=== PATIENT | female | born 1975 | race Caucasian/White ===

== ENCOUNTER 2018-08-24 16:48 | Inpatient (IN) ==
[~2018-08-24 16:48] MED LIST: Cholecalciferol (D-3) 1,000 UNIT (25MCG) TABLET PO SCH
--- NOTE | 2018-08-24 17:12 | Internal Med History&Physical ---
Date of Encounter: 08/24/18 Time of Encounter: 17:06 Internal Medicine - H&P: HPI Chief complaint: Cellulitis Admitted From: Direct Admit Plans for Post Hospital Care: Home History of present illness: Ms. Mcdowell is a 43 year old female with history of GERD, DM, HLD, asthma, anxiety, tobacco abuse, who is transferred to us due to right lower ext cellulitis that has not improved despite vancomycin. She had presented there on 08/22 with right lower ext redness/pain/swelling. Has had celulitis in same leg before. Initiall temp was 102. BP was 97/68. Patient had a temp today up to 101.1 and BP 92/50. Initial WBC count of 13.8. Was down to 8.5 today. Had elevated D-dimers and CTA ruled out PE. Was put on Vancomycin and clindamycin from day 1. Blood cultures remained negative. Patient is complaining of loose stools that started today. Had 4 of them. She denies any dizziness, headache, nausea, vomiting, chest pain, shortness of breath, cough, abdominal pain, constipation, urinary symptoms, or neurological symptoms. Other labs at [place]: BUN 9, Cr .7, Na 137, K 3.8, CL 100, CO2 26, Procalcitonin elevated at .17. UA negative Right lower ext venous doppler negative for DVT Past Med Surg Social Fam HX - Past Medical History Medical history: asthma, diabetes Psychiatric history: anxiety - Past Surgical History Surgical History: cholecystectomy, hysterectomy Additional surgical history: thiroid nodule - Social History Smoking Status: Current every day smoker Internal Medicine - H&P: Meds Allergy/AdvReac Type Severity Reaction Status Date / Time naproxen AdvReac Agitated Verified 02/16/18 07:31 All Systems PM: A 10-system review of systems was performed and is negative for pertinent findings except as documented above in the HPI. Review of systems: All systems reviewed are negative except for as mentioned above - Constitutional Exam: GEN: NAD HEENT: AT, NC, No cyanosis, oral mucosa is moist, No JVD Lymphatics: No lymphadenoapthy Eyes: Extrocular muscles intact, anicteric CVS:RRR. S1, S2, No m/r/g RESP: CTAB ABD: Soft, NT, ND, +BS EXT: right lower extremity erythema and warmth felt from the leg distally up to the midial thigh. There is a blister on the medial leg and another one next to it that is open, 2+ DP NEURO: Nonfocal, CN II-XII intact, No focal motor or sensory deficits Psych: Cooperative, Not anxious or depressed - Assessment and Plan (1) Sepsis Current Visit: Yes Status: Acute Assessment and plan: Treat underlyng as below. Will send blood cultures. Check lactic acid. Check procalcitonin. Repeat basic labs Qualifiers: Sepsis type: sepsis due to unspecified organism Qualified Code(s): A41.9 - Sepsis, unspecified organism (2) Cellulitis Current Visit: Yes Status: Acute Assessment and plan: Will f/u on labs as above. Start vancomycin/zosyn. Will get a CT of right lower extremity and proceed from there. May need ID consult and possibly surgery consult. Will try to get cultures from the leg open wounds if there is any drainage. Qualifiers: Site of cellulitis: extremity Site of cellulitis of extremity: lower extremity Laterality: right Qualified Code(s): L03.115 - Cellulitis of right lower limb (3) Diarrhea Current Visit: Yes Status: Acute Assessment and plan: Need to rule out C. Diff Qualifiers: Diarrhea type: unspecified type Qualified Code(s): R19.7 - Diarrhea, unspecified (4) Diabetes Current Visit: Yes Status: Acute Assessment and plan: SSI. Accucheks Qualifiers: Diabetes mellitus type: type 2 Diabetes mellitus continuous churn buttermaker insulin use: without continuous churn buttermaker use Diabetes mellitus complication status: without complication Qualified Code(s): E11.9 - Type 2 diabetes mellitus without complications (5) GERD (gastroesophageal reflux disease) Current Visit: Yes Status: Acute Assessment and plan: c/w home PPI Qualifiers: Esophagitis presence: without esophagitis Qualified Code(s): K21.9 - Gastro-esophageal reflux disease without esophagitis (6) Tobacco abuse Current Visit: Yes Status: Acute Assessment and plan: Nicotine patch (7) Morbid obesity Current Visit: Yes Status: Acute Assessment and plan: counseled (8) DVT prophylaxis Current Visit: Yes Status: Acute Assessment and plan: Heparin SQ - Time Spent With Patient Total time spent is greater than 50% in coordination of care (as documented) at patient's floor/unit and/or counseling patient:
[2018-08-24] MEDS ORDERED: Naloxone 0.4 MG/ML INJ IVP PRN (17:17)
[2018-08-24] MEDS ORDERED: Dextrose Gel 15 GM/37.5 ML TUBE PO PRN ×2 (17:18)
[2018-08-24] MEDS ORDERED: *HR* Dextrose 50 % in Water (Syg) 50 ML SYRINGE IVP PRN (17:18)
[2018-08-24] MEDS ORDERED: Morphine Sulfate 2 MG/ML SYRINGE IVP PRN (17:18)
[2018-08-24] MEDS ORDERED: D5% in Water 1,000 ML IVC PRN (17:18)
[2018-08-24] MEDS ORDERED: Ondansetron 4 MG/2 ML VIAL IVP PRN (17:19)
[2018-08-24] MEDS ORDERED: Isovue-370 500 ML BOTTLE IVP ONE (17:24)
[2018-08-24] MEDS ORDERED: 0.9 % Sodium Chloride 1,000 ML IVC SCH (17:30)
[2018-08-24 18:10] LABS: Basophils % 0.5 %; Eosinophils # 0.1 K/mcL (0.0-0.6); Eosinophils % 1.5 %; Hematocrit 40.1 % (35.3-44.9); Hemoglobin 13.4 g/dL (11.5-15.4); Immature Granulocytes % 0.8 % (0-4); Lymphocytes # 2.2 K/mcL (0.6-4.6); Lymphocytes % 28.6 %; Mean Corpuscular HGB Conc 33.4 g/dL (31.6-35.5); Mean Corpuscular Hemoglobin 30.2 pg (28.0-33.3); Mean Corpuscular Volume 90.5 fL (83.0-100.0); Mean Platelet Volume 10.4 fL (9.4-12.4); Monocytes # 0.9 K/mcL (0.0-1.3); Neutrophils # 4.4 K/mcL (1.6-8.9); Platelet Count 181 K/mcL (140-400); Red Blood Count 4.43 M/mcL (3.82-4.97); Red Cell Distribution Width 14.2 % (11.5-14.5); Segmented Neutrophils % 56.6 %; White Blood Count 7.8 K/mcL (4.3-11.1)
[2018-08-24 18:20] LABS: Prothrombin Time 11.4 Seconds (9.4-12.1)
[2018-08-24 18:29] LABS: Alanine Aminotransferase 21 Units/L (7-52); Albumin 3.5 g/dL (3.5-5.7); Albumin/Globulin Ratio 1.3 (1.1-2.2); Alkaline Phosphatase 95 Units/L (34-104); Aspartate Amino Transferase 22 Units/L (13-39); BUN/Creatinine Ratio 11 (6-26); Bilirubin,Total 0.5 mg/dL (0.3-1.0); Blood Urea Nitrogen 8 mg/dL (6-20); Calcium 8.4 mg/dL (8.6-10.3); Carbon Dioxide 29 mEq/L (23-29); Chloride 101 mEq/L (98-107); Globulin 2.8 g/dL (2.4-3.5); Glucose 126 mg/dL (70-105); Osmolality,Calculated 284 (280-300); Potassium 3.2 mEq/L (3.5-5.1); Sodium 137 mEq/L (136-145); Total Protein 6.3 g/dL (6.4-8.9); Vancomycin,Trough 7 mcg/mL (5-10); eGFR For African Americans > 60 (> 60); eGFR For Non-African Americans > 60 (> 60)
[2018-08-24 18:50] LABS: Platelet Estimate Normal (Normal); Reactive Lymphocytes Present (Not Present)
[2018-08-24] MEDS: *HR* HYDROcodone/Acet 5/325 mg TABLET PO PRN (20:43)
[2018-08-24] MEDS: *HR* Heparin 5,000 UNIT/ML VIAL SQ SCH (22:45)
[2018-08-24] MEDS: Insulin LISPRO 300 UNITS/3 ML VIAL SQ SCH (22:47)
[2018-08-24] MEDS: Lactobacillus 1 EACH CAP.SPRINK PO SCH (23:06)
[2018-08-24] MEDS: ARIPiprazole 10 MG TABLET PO SCH (23:06)
[2018-08-25] MEDS: Melatonin 3 MG TABLET PO PRN (00:38)
[2018-08-25] MEDS: Piperacillin/Tazobactam 3.375 GM in 0.9 % Sodium Chloride Mini Bag 100 ML IVPB SCH ×3 (00:38→16:37)
[2018-08-25] MEDS: *HR* HYDROcodone/Acet 5/325 mg TABLET PO PRN ×2 (05:50→13:34)
[2018-08-25] MEDS: *HR* Heparin 5,000 UNIT/ML VIAL SQ SCH ×3 (05:51→21:22)
[2018-08-25 06:23] LABS: Basophils % 0.6 %; Eosinophils # 0.1 K/mcL (0.0-0.6); Eosinophils % 1.7 %; Hematocrit 37.9 % (35.3-44.9); Hemoglobin 12.5 g/dL (11.5-15.4); Immature Granulocytes % 0.9 % (0-4); Lymphocytes # 1.8 K/mcL (0.6-4.6); Lymphocytes % 25.1 %; Mean Corpuscular Hemoglobin 30.6 pg (28.0-33.3); Mean Corpuscular Volume 92.7 fL (83.0-100.0); Mean Platelet Volume 10.3 fL (9.4-12.4); Monocytes # 0.9 K/mcL (0.0-1.3); Monocytes % 12.2 %; Neutrophils # 4.2 K/mcL (1.6-8.9); Platelet Count 195 K/mcL (140-400); Red Blood Count 4.09 M/mcL (3.82-4.97); Red Cell Distribution Width 14.2 % (11.5-14.5); Segmented Neutrophils % 59.5 %
[2018-08-25 06:50] LABS: BUN/Creatinine Ratio 9 (6-26); Blood Urea Nitrogen 7 mg/dL (6-20); Carbon Dioxide 28 mEq/L (23-29); Chloride 101 mEq/L (98-107); Glucose 130 mg/dL (70-105); Magnesium 1.6 mg/dL (1.6-2.6); Osmolality,Calculated 294 (280-300); Potassium 3.2 mEq/L (3.5-5.1); Sodium 142 mEq/L (136-145); eGFR For African Americans > 60 (> 60); eGFR For Non-African Americans > 60 (> 60)
[2018-08-25] MEDS ORDERED: Magnesium Oxide 400 MG TABLET PO ONE (09:03)
--- NOTE | 2018-08-25 09:09 | Internal Med Progress Note ---
Hospitalist Progress Note - Encounter Date of Encounter: 08/25/18 Time of Encounter: 09:08 - Subjective Interval History: Patient was seen and examined. No acute events. Afebrile. She feels that her pain and erythema is improving. CT of the leg was done yesterday which showed no abscess. There was subcutaneous fat stranding on the right thigh and m oderate subcutaneous fat stranding in the right leg compatible with cellulitis. Was reactive right inguinal lymphadenopathy. - Exam Vitals: Temp Pulse Resp BP Pulse Ox 98.7 F 82 17 101/68 92 08/25/18 06:38 08/25/18 06:38 08/25/18 06:38 08/25/18 06:38 08/25/18 06:38 Exam: GEN: NAD CVS:RRR. S1, S2, No m/r/g RESP: CTAB ABD: Soft, NT, ND, +BS EXT: right lower extremity erythema and warmth felt from the leg distally up to the medial thigh is improving. There is a blister on the medial leg and another one next to it that is open, 2+ DP NEURO: Nonfocal, CN II-XII intact, No focal motor or sensory deficits - Assessment and Plan (1) Sepsis Current Visit: Yes Status: Acute Assessment and Plan: Treat underlyng as below. Follow-up on blood cultures (2) Cellulitis Current Visit: Yes Status: Acute Assessment and Plan: CT results noted. No abscess. Continue vancomycin and Zosyn. I do notice some improvement. Pain control. Afebrile. Stop IV fluids. (3) Diarrhea Current Visit: Yes Status: Acute Assessment and Plan: Improving. Rule out C. difficile. (4) Diabetes Current Visit: Yes Status: Acute Assessment and Plan: SSI. Accucheks (5) GERD (gastroesophageal reflux disease) Current Visit: Yes Status: Acute Assessment and Plan: c/w home PPI (6) Tobacco abuse Current Visit: Yes Status: Acute Assessment and Plan: Nicotine patch (7) Morbid obesity Current Visit: Yes Status: Acute Assessment and Plan: counseled (8) DVT prophylaxis Current Visit: Yes Status: Acute Assessment and Plan: Heparin SQ - Time Spent with Patient Total time spent is greater than 50% in coordination of care (as documented) at patient's floor/unit and/or counseling patient: Internal Medicine: Result - Labs CBC & Chem 7: 08/25/18 05:38 08/25/18 05:38 Labs: Short CBC 08/24/18 08/25/18 Range/Units 17:43 05:38 WBC 7.8 7.0 (4.3-11.1) K/mcL Hgb 13.4 12.5 (11.5-15.4) g/dL Hct 40.1 37.9 (35.3-44.9) % Plt Count 181 195 (140-400) K/mcL Neutrophils # 4.4 4.2 (1.6-8.9) K/mcL BMP 08/24/18 08/25/18 17:43 05:38 Sodium 137 142 Potassium 3.2 L 3.2 L Chloride 101 101 Carbon Dioxide 29 28 BUN 8 7 Creatinine 0.76 0.80 Glucose 126 H 130 H Calcium 8.4 L 8.0 L Liver Function 08/24/18 Range/Units 17:43 Total Bilirubin 0.5 (0.3-1.0) mg/dL AST 22 (13-39) Units/L ALT 21 (7-52) Units/L Alkaline Phosphatase 95 (34-104) Units/L Albumin 3.5 (3.5-5.7) g/dL - ABG Interpretation ABG results: PT/INR, D-dimer PT 11.4 Seconds (9.4-12.1) 08/24/18 17:43 - Impressions Impressions Lower Extremity CT 08/24/18 17:24 IMPRESSION: 1. Mild subcutaneous fat stranding of the right thigh and moderate subcutaneous fat stranding in the right leg compatible with cellulitis. No drainable fluid collection. Skin blistering along the posteromedial aspect of the right calf. 2. Mild likely reactive right inguinal lymphadenopathy. 3. No acute osseous abnormality. D/ / Rios Dangelo MD / Rios Dangelo MD Interpreting Provider: Rios Dangelo MD Consult Discharge Plan - Plan Referrals: NONE,PCP [Primary Care Provider] - (1) Sepsis Qualifiers: Sepsis type: sepsis due to unspecified organism Qualified Code(s): A41.9 - Sepsis, unspecified organism (2) Cellulitis Qualifiers: Site of cellulitis: extremity Site of cellulitis of extremity: lower extremity Laterality: right Qualified Code(s): L03.115 - Cellulitis of right lower limb (3) Diarrhea Qualifiers: Diarrhea type: unspecified type Qualified Code(s): R19.7 - Diarrhea, unspecified (4) Diabetes Qualifiers: Diabetes mellitus type: type 2 Diabetes mellitus halfway insulin use: without halfway use Diabetes mellitus complication status: without complication Qualified Code(s): E11.9 - Type 2 diabetes mellitus without complications (5) GERD (gastroesophageal reflux disease) Qualifiers: Esophagitis presence: without esophagitis Qualified Code(s): K21.9 - Gastro- esophageal reflux disease without esophagitis
[2018-08-25] MEDS ORDERED: HYOSCYAMINE SULFATE PO SCH (09:15)
[2018-08-25] MEDS: Fluticasone Propionate Nasal 50 MCG/SPRAY BOTTLE NS SCH ×2 (09:36→21:24)
[2018-08-25] MEDS: Lactobacillus 1 EACH CAP.SPRINK PO SCH ×2 (09:38→21:22)
[2018-08-25] MEDS: Furosemide 20 MG TABLET PO SCH (09:38)
[2018-08-25] MEDS: Insulin LISPRO 300 UNITS/3 ML VIAL SQ SCH ×4 (09:38→21:23)
[2018-08-25] MEDS: Loratadine 10 MG TABLET PO SCH (09:38)
[2018-08-25] MEDS: Nicotine 21 MG PATCH.TD24 TD SCH (11:21)
[2018-08-25] MEDS: ARIPiprazole 10 MG TABLET PO SCH (16:36)
[2018-08-25] MEDS: *HR* OxyCODONE Immed Rel 5 MG TABLET PO PRN (21:21)
[2018-08-25] MEDS: Budesonide/Formoterol 160/4.5 1 PUFF INH IH SCH (21:56)
[2018-08-26] MEDS: Piperacillin/Tazobactam 3.375 GM in 0.9 % Sodium Chloride Mini Bag 100 ML IVPB SCH ×4 (00:02→23:31)
[2018-08-26 04:46] LABS: BUN/Creatinine Ratio 12 (6-26); Blood Urea Nitrogen 9 mg/dL (6-20); Calcium 8.3 mg/dL (8.6-10.3); Carbon Dioxide 29 mEq/L (23-29); Chloride 99 mEq/L (98-107); Glucose 112 mg/dL (70-105); Magnesium 1.6 mg/dL (1.6-2.6); Osmolality,Calculated 299 (280-300); Potassium 3.9 mEq/L (3.5-5.1); Sodium 145 mEq/L (136-145); eGFR For African Americans > 60 (> 60); eGFR For Non-African Americans > 60 (> 60)
[2018-08-26] MEDS: *HR* Heparin 5,000 UNIT/ML VIAL SQ SCH ×3 (05:46→21:00)
[2018-08-26] MEDS: Insulin LISPRO 300 UNITS/3 ML VIAL SQ SCH ×4 (07:57→21:01)
[2018-08-26] MEDS ORDERED: Magnesium Oxide 400 MG TABLET PO ONE (08:34)
--- NOTE | 2018-08-26 08:37 | Internal Med Progress Note ---
Hospitalist Progress Note - Encounter Date of Encounter: 08/26/18 Time of Encounter: 08:35 - Subjective Interval History: Patient was seen and examined. No acute events. Afebrile. right lower ext redness and swelling improving. No new blisterrs. CT of the leg was done while here which showed no abscess. There was subcutaneous fat stranding on the right thigh and moderate subcutaneous fat stranding in the right leg compatible with cellulitis. Was reactive right inguinal lymphadenopathy. - Exam Vitals: Temp Pulse Resp BP Pulse Ox 98.7 F 72 17 103/66 94 08/26/18 06:50 08/26/18 06:50 08/26/18 06:50 08/26/18 06:50 08/26/18 06:50 Exam: GEN: NAD CVS:RRR. S1, S2, No m/r/g RESP: CTAB ABD: Soft, NT, ND, +BS EXT: right lower extremity erythema and warmth felt from the leg distally up to the medial thigh is improving. There is a blister on the medial leg and another one next to it that is open, 2+ DP NEURO: Nonfocal, CN II-XII intact, No focal motor or sensory deficits - Assessment and Plan (1) Sepsis Current Visit: Yes Status: Acute Assessment and Plan: Treat underlyng as below. Follow-up on blood cultures (2) Cellulitis Current Visit: Yes Status: Acute Assessment and Plan: CT results noted. No abscess. Continue vancomycin and Zosyn. Improving. Pain control. Afebrile. Likely d/c tomorrow (3) Diarrhea Current Visit: Yes Status: Acute Assessment and Plan: C. Diff neg. Resolved. Imodium PRN. (4) Diabetes Current Visit: Yes Status: Acute Assessment and Plan: SSI. Accucheks (5) GERD (gastroesophageal reflux disease) Current Visit: Yes Status: Acute Assessment and Plan: c/w home PPI (6) Tobacco abuse Current Visit: Yes Status: Acute Assessment and Plan: Nicotine patch (7) Morbid obesity Current Visit: Yes Status: Acute Assessment and Plan: counseled (8) DVT prophylaxis Current Visit: Yes Status: Acute Assessment and Plan: Heparin SQ - Time Spent with Patient Total time spent is greater than 50% in coordination of care (as documented) at patient's floor/unit and/or counseling patient: Internal Medicine: Result - Labs CBC & Chem 7: 08/25/18 05:38 08/26/18 04:09 Labs: BMP 08/26/18 04:09 Sodium 145 Potassium 3.9 Chloride 99 Carbon Dioxide 29 BUN 9 Creatinine 0.75 Glucose 112 H Calcium 8.3 L - ABG Interpretation ABG results: PT/INR, D-dimer PT 11.4 Seconds (9.4-12.1) 08/24/18 17:43 Consult Discharge Plan - Plan Referrals: NONE,PCP [Primary Care Provider] - (1) Sepsis Qualifiers: Sepsis type: sepsis due to unspecified organism Qualified Code(s): A41.9 - Sepsis, unspecified organism (2) Cellulitis Qualifiers: Site of cellulitis: extremity Site of cellulitis of extremity: lower extremity Laterality: right Qualified Code(s): L03.115 - Cellulitis of right lower limb (3) Diarrhea Qualifiers: Diarrhea type: unspecified type Qualified Code(s): R19.7 - Diarrhea, unspecified (4) Diabetes Qualifiers: Diabetes mellitus type: type 2 Diabetes mellitus salvage determiner insulin use: without salvage determiner use Diabetes mellitus complication status: without complication Qualified Code(s): E11.9 - Type 2 diabetes mellitus without complications (5) GERD (gastroesophageal reflux disease) Qualifiers: Esophagitis presence: without esophagitis Qualified Code(s): K21.9 - Gastro- esophageal reflux disease without esophagitis
[2018-08-26] MEDS: Cholecalciferol (D-3) 1,000 UNIT (25MCG) TABLET PO SCH (09:08)
[2018-08-26] MEDS: *HR* HYDROcodone/Acet 5/325 mg TABLET PO PRN ×2 (09:08→21:00)
[2018-08-26] MEDS: Vitamin E 200 UNIT (90MG) CAPSULE PO SCH (09:09)
[2018-08-26] MEDS: Furosemide 20 MG TABLET PO SCH (09:10)
[2018-08-26] MEDS: Lactobacillus 1 EACH CAP.SPRINK PO SCH ×2 (09:10→21:00)
[2018-08-26] MEDS: Loratadine 10 MG TABLET PO SCH (09:10)
[2018-08-26] MEDS: Multivit/Ca/Min/Fe/FA 1 TAB TABLET PO SCH (09:10)
[2018-08-26] MEDS: Nicotine 21 MG PATCH.TD24 TD SCH (09:11)
[2018-08-26] MEDS: Budesonide/Formoterol 160/4.5 1 PUFF INH IH SCH ×2 (11:07→20:10)
[2018-08-26] MEDS: Fluticasone Propionate Nasal 50 MCG/SPRAY BOTTLE NS SCH ×2 (11:38→21:00)
[2018-08-26] MEDS: *HR* OxyCODONE Immed Rel 5 MG TABLET PO PRN (15:52)
[2018-08-26] MEDS: ARIPiprazole 10 MG TABLET PO SCH (18:03)
[2018-08-27] MEDS: *HR* OxyCODONE Immed Rel 5 MG TABLET PO PRN ×3 (02:38→15:54)
[2018-08-27 02:50] LABS: Basophils # 0.1 K/mcL (0.0-0.2); Basophils % 0.9 %; Eosinophils # 0.2 K/mcL (0.0-0.6); Hemoglobin 11.8 g/dL (11.5-15.4); Immature Granulocytes % 5.5 % (0-4); Lymphocytes # 2.2 K/mcL (0.6-4.6); Lymphocytes % 27.5 %; Mean Corpuscular HGB Conc 32.8 g/dL (31.6-35.5); Mean Corpuscular Hemoglobin 30.2 pg (28.0-33.3); Mean Corpuscular Volume 92.1 fL (83.0-100.0); Mean Platelet Volume 9.8 fL (9.4-12.4); Monocytes # 0.8 K/mcL (0.0-1.3); Monocytes % 9.4 %; Neutrophils # 4.4 K/mcL (1.6-8.9); Platelet Count 261 K/mcL (140-400); Red Blood Count 3.91 M/mcL (3.82-4.97); Red Cell Distribution Width 13.8 % (11.5-14.5); Segmented Neutrophils % 54.7 %; White Blood Count 8.1 K/mcL (4.3-11.1)
[2018-08-27 03:01] LABS: BUN/Creatinine Ratio 11 (6-26); Blood Urea Nitrogen 8 mg/dL (6-20); Carbon Dioxide 29 mEq/L (23-29); Chloride 105 mEq/L (98-107); Glucose 161 mg/dL (70-105); Magnesium 1.7 mg/dL (1.6-2.6); Osmolality,Calculated 294 (280-300); Potassium 3.4 mEq/L (3.5-5.1); Sodium 141 mEq/L (136-145); eGFR For African Americans > 60 (> 60); eGFR For Non-African Americans > 60 (> 60)
[2018-08-27 03:58] LABS: Platelet Estimate Normal (Normal)
[2018-08-27] MEDS: *HR* Heparin 5,000 UNIT/ML VIAL SQ SCH ×3 (05:19→22:36)
[2018-08-27] MEDS: Budesonide/Formoterol 160/4.5 1 PUFF INH IH SCH ×2 (07:47→22:18)
[2018-08-27] MEDS ORDERED: Magnesium Oxide 400 MG TABLET PO ONE (08:18)
--- NOTE | 2018-08-27 08:50 | Internal Med Progress Note ---
Hospitalist Progress Note - Encounter Date of Encounter: 08/27/18 Time of Encounter: 08:47 - Subjective Interval History: Patient was seen and examined. No acute events. Afebrile. right lower ext redness and swelling contineu to improve. She feels well but in pain in the leg. CT of the leg was done while here which showed no abscess. There was sub cutaneous fat stranding on the right thigh and moderate subcutaneous fat stranding in the right leg compatible with cellulitis. Was reactive right inguinal lymphadenopathy. - Exam Vitals: Temp Pulse Resp BP Pulse Ox 98.0 F 66 16 107/71 95 08/27/18 07:06 08/27/18 07:06 08/27/18 07:47 08/27/18 07:06 08/27/18 07:47 Exam: GEN: NAD CVS:RRR. S1, S2, No m/r/g RESP: CTAB ABD: Soft, NT, ND, +BS EXT: right lower extremity erythema and warmth localized to leg and calf area. There is a blister on the medial leg and another one next to it that is open, 2+ DP NEURO: Nonfocal, CN II-XII intact, No focal motor or sensory deficits - Assessment and Plan (1) Sepsis Current Visit: Yes Status: Acute Assessment and Plan: Treat underlying as below. Follow-up on blood cultures (2) Cellulitis Current Visit: Yes Status: Acute Assessment and Plan: CT results noted. No abscess. c/w cefepime today. There is significant improvement. She was given the option of discharge on oral abx vs staying and she felt that she would benefit from another day. She was explained that the blisters and erythema will stay for a few weeks before completely resolved due to the extent of her cellulitis. She is significantly improved and the erythema is now only localized to the leg area. There is a couple of blisters noted. c/w Pain control. Afebrile. Likely d/c tomorrow (3) Diarrhea Current Visit: Yes Status: Acute Assessment and Plan: C. Diff neg. Resolved. Imodium PRN. (4) Diabetes Current Visit: Yes Status: Acute Assessment and Plan: SSI. Accucheks (5) GERD (gastroesophageal reflux disease) Current Visit: Yes Status: Acute Assessment and Plan: c/w home PPI (6) Tobacco abuse Current Visit: Yes Status: Acute Assessment and Plan: Nicotine patch (7) Morbid obesity Current Visit: Yes Status: Acute Assessment and Plan: counseled (8) DVT prophylaxis Current Visit: Yes Status: Acute Assessment and Plan: Heparin SQ - Time Spent with Patient Total time spent is greater than 50% in coordination of care (as documented) at patient's floor/unit and/or counseling patient: Internal Medicine: Result - Labs CBC & Chem 7: 08/27/18 02:19 08/27/18 02:19 Labs: Short CBC 08/27/18 Range/Units 02:19 WBC 8.1 (4.3-11.1) K/mcL Hgb 11.8 (11.5-15.4) g/dL Hct 36.0 (35.3-44.9) % Plt Count 261 (140-400) K/mcL Neutrophils # 4.4 (1.6-8.9) K/mcL BMP 08/27/18 02:19 Sodium 141 Potassium 3.4 L Chloride 105 Carbon Dioxide 29 BUN 8 Creatinine 0.73 Glucose 161 H Calcium 8.0 L - ABG Interpretation ABG results: PT/INR, D-dimer PT 11.4 Seconds (9.4-12.1) 08/24/18 17:43 Consult Discharge Plan - Plan Referrals: NONE,PCP [Primary Care Provider] - (1) Sepsis Qualifiers: Sepsis type: sepsis due to unspecified organism Qualified Code(s): A41.9 - Sepsis, unspecified organism (2) Cellulitis Qualifiers: Site of cellulitis: extremity Site of cellulitis of extremity: lower extremity Laterality: right Qualified Code(s): L03.115 - Cellulitis of right lower limb (3) Diarrhea Qualifiers: Diarrhea type: unspecified type Qualified Code(s): R19.7 - Diarrhea, unspecified (4) Diabetes Qualifiers: Diabetes mellitus type: type 2 Diabetes mellitus correction insulin use: without correction use Diabetes mellitus complication status: without complication Qualified Code(s): E11.9 - Type 2 diabetes mellitus without complications (5) GERD (gastroesophageal reflux disease) Qualifiers: Esophagitis presence: without esophagitis Qualified Code(s): K21.9 - Gastro- esophageal reflux disease without esophagitis
[2018-08-27] MEDS: Piperacillin/Tazobactam 3.375 GM in 0.9 % Sodium Chloride Mini Bag 100 ML IVPB SCH ×2 (09:07→15:53)
[2018-08-27] MEDS: Insulin LISPRO 300 UNITS/3 ML VIAL SQ SCH ×4 (09:07→21:27)
[2018-08-27] MEDS: Fluticasone Propionate Nasal 50 MCG/SPRAY BOTTLE NS SCH ×2 (09:08→20:23)
[2018-08-27] MEDS: Vitamin E 200 UNIT (90MG) CAPSULE PO SCH (09:08)
[2018-08-27] MEDS: Furosemide 20 MG TABLET PO SCH (09:09)
[2018-08-27] MEDS: Lactobacillus 1 EACH CAP.SPRINK PO SCH ×2 (09:09→20:23)
[2018-08-27] MEDS: Cholecalciferol (D-3) 1,000 UNIT (25MCG) TABLET PO SCH (09:09)
[2018-08-27] MEDS: Loratadine 10 MG TABLET PO SCH (09:09)
[2018-08-27] MEDS: Multivit/Ca/Min/Fe/FA 1 TAB TABLET PO SCH (09:09)
[2018-08-27] MEDS: Nicotine 21 MG PATCH.TD24 TD SCH (09:09)
[2018-08-27] MEDS: ARIPiprazole 10 MG TABLET PO SCH (17:57)
[2018-08-27] MEDS: *HR* HYDROcodone/Acet 5/325 mg TABLET PO PRN (17:59)
[2018-08-28] MEDS: Piperacillin/Tazobactam 3.375 GM in 0.9 % Sodium Chloride Mini Bag 100 ML IVPB SCH ×4 (00:27→23:26)
[2018-08-28 02:21] LABS: Basophils # 0.1 K/mcL (0.0-0.2); Eosinophils # 0.2 K/mcL (0.0-0.6); Eosinophils % 2.2 %; Hematocrit 35.4 % (35.3-44.9); Hemoglobin 11.6 g/dL (11.5-15.4); Immature Granulocytes % 11.3 % (0-4); Lymphocytes # 2.4 K/mcL (0.6-4.6); Lymphocytes % 25.8 %; Mean Corpuscular HGB Conc 32.8 g/dL (31.6-35.5); Mean Corpuscular Hemoglobin 30.3 pg (28.0-33.3); Mean Corpuscular Volume 92.4 fL (83.0-100.0); Mean Platelet Volume 9.7 fL (9.4-12.4); Monocytes # 0.8 K/mcL (0.0-1.3); Neutrophils # 4.9 K/mcL (1.6-8.9); Platelet Count 316 K/mcL (140-400); Red Blood Count 3.83 M/mcL (3.82-4.97); Red Cell Distribution Width 13.7 % (11.5-14.5); Segmented Neutrophils % 51.7 %; White Blood Count 9.4 K/mcL (4.3-11.1)
[2018-08-28 02:33] LABS: BUN/Creatinine Ratio 14 (6-26); Blood Urea Nitrogen 10 mg/dL (6-20); Calcium 8.1 mg/dL (8.6-10.3); Carbon Dioxide 28 mEq/L (23-29); Chloride 106 mEq/L (98-107); Glucose 182 mg/dL (70-105); Magnesium 1.8 mg/dL (1.6-2.6); Osmolality,Calculated 292 (280-300); Potassium 3.5 mEq/L (3.5-5.1); Sodium 139 mEq/L (136-145); eGFR For African Americans > 60 (> 60); eGFR For Non-African Americans > 60 (> 60)
[2018-08-28 02:51] LABS: Platelet Estimate Normal (Normal)
[2018-08-28] MEDS: *HR* OxyCODONE Immed Rel 5 MG TABLET PO PRN ×2 (03:23→09:41)
[2018-08-28] MEDS: *HR* Heparin 5,000 UNIT/ML VIAL SQ SCH ×3 (05:52→20:21)
[2018-08-28] MEDS: *HR* HYDROcodone/Acet 5/325 mg TABLET PO PRN ×3 (05:56→23:27)
[2018-08-28] MEDS: Budesonide/Formoterol 160/4.5 1 PUFF INH IH SCH ×2 (08:05→21:23)
[2018-08-28] MEDS: Lactobacillus 1 EACH CAP.SPRINK PO SCH ×4 (08:56→20:21)
[2018-08-28] MEDS: Nicotine 21 MG PATCH.TD24 TD SCH (09:00)
[2018-08-28] MEDS: Insulin LISPRO 300 UNITS/3 ML VIAL SQ SCH ×4 (09:00→20:19)
[2018-08-28] MEDS: Loratadine 10 MG TABLET PO SCH (09:01)
[2018-08-28] MEDS: Cholecalciferol (D-3) 1,000 UNIT (25MCG) TABLET PO SCH (09:01)
[2018-08-28] MEDS: Multivit/Ca/Min/Fe/FA 1 TAB TABLET PO SCH (09:01)
[2018-08-28] MEDS: Fluticasone Propionate Nasal 50 MCG/SPRAY BOTTLE NS SCH ×2 (09:01→20:20)
[2018-08-28] MEDS: Vitamin E 200 UNIT (90MG) CAPSULE PO SCH (09:01)
[2018-08-28] MEDS: Furosemide 20 MG TABLET PO SCH (09:02)
[2018-08-28] MEDS: Famotidine 20 MG TABLET PO SCH ×2 (09:02→20:20)
[2018-08-28] MEDS: ARIPiprazole 10 MG TABLET PO SCH (17:40)
--- NOTE | 2018-08-28 19:13 | Internal Med Progress Note ---
Hospitalist Progress Note - Encounter Date of Encounter: 08/28/18 Time of Encounter: 15:30 - Subjective Interval History: Ms Mcdowell started right lower extremity erythema has receded. She reports one episode of loose stool today GEN: Denies fever, chills or malaise HEENT: Denies headache blurriness, or dysphagia RESP: Denies SOB or cough CV: Denies chest pain or palpitations GI: Denies Nausea, vomiting, diarrhea or constipation Reviewed current in hospital medications with modifications see orders Reviewed Routine labs - Exam Vitals: Temp Pulse Resp BP Pulse Ox 98.4 F 70 14 128/85 94 08/28/18 15:06 08/28/18 15:06 08/28/18 15:06 08/28/18 15:06 08/28/18 15:06 Exam: GEN: NAD, A&O x 3, Pleasant and conversant, her fiance was at her bedside SKIN: [place] warm acyanotic not jaundice HEART: RRR, no murmurs LUNGS: CTA no wheeze or crackles, overall non labored ABDOMEN; Soft, non tender or distended, BS x 4 normactive EXT: Right lower extremity dressing appears clean dry and intact. Noticeable r eceding erythema noted. Bilateral diffuse nonpitting edema Pedal pulses 1+, radial pulses 2+ PSYCH: Mood and affect is appropriate - Assessment and Plan (1) Cellulitis Current Visit: Yes Status: Acute Assessment and Plan: Improving on Zosyn and vancomycin wound culture was negative blood culture still pending would likely de-escalate antibiotics to Augmentin upon discharge. Patient still unable to fully bear weight discussed with patient and her fiance possible ECF placement. Of note CT of the right lower extremity does not show any acute osseous abnormality (2) Sepsis Current Visit: Yes Status: Acute Assessment and Plan: Results blood culture still pending we will keep Zosyn and vancomycin for another day with plans to be escalated to Augmentin upon discharge for jorge lulitis (3) Diabetes Current Visit: Yes Status: Acute Assessment and Plan: Discussed with patient importance of glycemic control point of care glucose ranges from 128-165 during his hospitalization continue insulin therapy (4) GERD (gastroesophageal reflux disease) Current Visit: Yes Status: Acute Assessment and Plan: Stable chronic switch PPI to H2 mon[place] due to increased risk for C. difficile colitis (5) DVT prophylaxis Current Visit: Yes Status: Acute Assessment and Plan: Heparin subcutaneously (6) Tobacco abuse Current Visit: Yes Status: Acute Assessment and Plan: encouraged tobacco cessation (7) Morbid obesity Current Visit: Yes Status: Acute Assessment and Plan: Continue to encourage lifestyle modification diet and exercise (8) Diarrhea Current Visit: Yes Status: Acute Assessment and Plan: Resolved - Time Spent with Patient Total time spent is greater than 50% in coordination of care (as documented) at patient's floor/unit and/or counseling patient: Internal Medicine: Result - Labs CBC & Chem 7: 08/28/18 01:53 08/28/18 01:53 Labs: Short CBC 08/28/18 Range/Units 01:53 WBC 9.4 (4.3-11.1) K/mcL Hgb 11.6 (11.5-15.4) g/dL Hct 35.4 (35.3-44.9) % Plt Count 316 (140-400) K/mcL Neutrophils # 4.9 (1.6-8.9) K/mcL BMP 08/28/18 01:53 Sodium 139 Potassium 3.5 Chloride 106 Carbon Dioxide 28 BUN 10 Creatinine 0.70 Glucose 182 H Calcium 8.1 L - ABG Interpretation ABG results: PT/INR, D-dimer PT 11.4 Seconds (9.4-12.1) 08/24/18 17:43 Consult Discharge Plan - Plan Referrals: NONE,PCP [Primary Care Provider] - (1) Cellulitis Qualifiers: Site of cellulitis: extremity Site of cellulitis of extremity: lower extremity Laterality: right Qualified Code(s): L03.115 - Cellulitis of right lower limb (2) Sepsis Qualifiers: Sepsis type: sepsis due to unspecified organism Qualified Code(s): A41.9 - Sepsis, unspecified organism (3) Diabetes Qualifiers: Diabetes mellitus type: type 2 Diabetes mellitus tank terminal gauger insulin use: without half-way use Diabetes mellitus complication status: without complication Qualified Code(s): E11.9 - Type 2 diabetes mellitus without c omplications (4) GERD (gastroesophageal reflux disease) Qualifiers: Esophagitis presence: without esophagitis Qualified Code(s): K21.9 - Gastro- esophageal reflux disease without esophagitis (8) Diarrhea Qualifiers: Diarrhea type: unspecified type Qualified Code(s): R19.7 - Diarrhea, un specified
[2018-08-29] MEDS: *HR* Heparin 5,000 UNIT/ML VIAL SQ SCH ×3 (05:26→20:27)
[2018-08-29] MEDS: *HR* HYDROcodone/Acet 5/325 mg TABLET PO PRN ×3 (06:20→20:27)
[2018-08-29] MEDS: Insulin LISPRO 300 UNITS/3 ML VIAL SQ SCH ×4 (07:47→20:33)
[2018-08-29] MEDS: Budesonide/Formoterol 160/4.5 1 PUFF INH IH SCH ×2 (07:59→22:20)
[2018-08-29] MEDS: Nicotine 21 MG PATCH.TD24 TD SCH (08:15)
[2018-08-29] MEDS: Cholecalciferol (D-3) 1,000 UNIT (25MCG) TABLET PO SCH (08:18)
[2018-08-29] MEDS: Famotidine 20 MG TABLET PO SCH ×2 (08:18→20:27)
[2018-08-29] MEDS: Furosemide 20 MG TABLET PO SCH (08:18)
[2018-08-29] MEDS: Vitamin E 200 UNIT (90MG) CAPSULE PO SCH ×2 (08:19→10:05)
[2018-08-29] MEDS: Loratadine 10 MG TABLET PO SCH (08:19)
[2018-08-29] MEDS: Multivit/Ca/Min/Fe/FA 1 TAB TABLET PO SCH (08:19)
[2018-08-29] MEDS: Lactobacillus 1 EACH CAP.SPRINK PO SCH ×3 (08:19→20:27)
[2018-08-29] MEDS: Piperacillin/Tazobactam 3.375 GM in 0.9 % Sodium Chloride Mini Bag 100 ML IVPB SCH ×3 (08:20→23:47)
[2018-08-29] MEDS: Fluticasone Propionate Nasal 50 MCG/SPRAY BOTTLE NS SCH ×2 (09:29→20:28)
[2018-08-29 09:31] LABS: Hematocrit 39.6 % (35.3-44.9); Mean Corpuscular HGB Conc 33.3 g/dL (31.6-35.5); Mean Corpuscular Hemoglobin 30.3 pg (28.0-33.3); Mean Corpuscular Volume 90.8 fL (83.0-100.0); Mean Platelet Volume 9.5 fL (9.4-12.4); Platelet Count 442 K/mcL (140-400); Red Blood Count 4.36 M/mcL (3.82-4.97); Red Cell Distribution Width 13.6 % (11.5-14.5)
[2018-08-29 09:40] LABS: Hemoglobin 13.2 g/dL (11.5-15.4)
[2018-08-29 09:53] LABS: BUN/Creatinine Ratio 9 (6-26); Blood Urea Nitrogen 7 mg/dL (6-20); Calcium 8.8 mg/dL (8.6-10.3); Carbon Dioxide 30 mEq/L (23-29); Glucose 180 mg/dL (70-105); eGFR For African Americans > 60 (> 60); eGFR For Non-African Americans > 60 (> 60)
[2018-08-29 10:04] LABS: Chloride 99 mEq/L (98-107); Osmolality,Calculated 301 (280-300); Potassium 3.8 mEq/L (3.5-5.1); Sodium 144 mEq/L (136-145)
--- NOTE | 2018-08-29 10:15 | Internal Med Progress Note ---
Hospitalist Progress Note - Encounter Date of Encounter: 08/29/18 Time of Encounter: 10:12 - Subjective Interval History: Ms venegas stated she is able to bear weight now on the right lower extremity. She reports that the erythema is much improved however the bullae is worsening. GEN: Denies fever, chills or malaise HEENT: Denies headache blurriness, or dysphagia RESP: Denies SOB or cough CV: Denies chest pain or palpitations GI: Denies Nausea, vomiting, diarrhea or constipation Reviewed current in hospital medications with modifications see orders Reviewed Routine labs - Exam Vitals: Temp Pulse Resp BP Pulse Ox 98.2 F 67 16 114/75 92 08/29/18 06:52 08/29/18 06:52 08/29/18 07:59 08/29/18 06:52 08/29/18 07:59 Exam: GEN: NAD, A&O x 3, Pleasant and conversant, her fiance was at her bedside SKIN: [place] warm acyanotic not jaundice HEART: RRR, no murmurs LUNGS: CTA no wheeze or crackles, overall non labored ABDOMEN; Soft, non tender or distended, BS x 4 normactive EXT: Right lower extremity erythema has receeded from her thighs however, skin surrounding the entire [place] area has raised dermatits with some bullae pemphigoid type presentation. Bilateral diffuse nonpitting edema Pedal pulses 1+, radial pulses 2+ PSYCH: Mood and affect is appropriate - Assessment and Plan (1) Cellulitis Current Visit: Yes Status: Acute Assessment and Plan: Improving on Zosyn and vancomycin with receeding erythema from the thigh, wound culture was negative blood culture still pending, however physical exam finding today of the right LE is significant for bullae pemphigoid type reaction which could also be from a staph or strep infection or dermatological. ID consult is pending, appreciate their input. She may require dermatology input with skin tissue biopsy if she does not improve with antibiotics. Patient able to fully bear weight discussed with patient and her fiance possible ECF placement for IV antibiotics but they declined opting for home infusion. She denies any IV drug use history. Of note CT of the right lower extremity does not show any acute osseous abnormality (2) Sepsis Current Visit: Yes Status: Acute Assessment and Plan: Resolved blood culture still pending but appears negative so far on Zosyn and vancomycin (3) Diabetes Current Visit: Yes Status: Acute Assessment and Plan: Discussed with patient importance of glycemic control point of care glucose 146 - 180 continue short acting insulin will add basal coverage. Glycermic control needed for proper wound healing. (4) GERD (gastroesophageal reflux disease) Current Visit: Yes Status: Acute Assessment and Plan: Stable chronic switch PPI to H2 monica due to increased risk for C. difficile colitis (5) DVT prophylaxis Current Visit: Yes Status: Acute Assessment and Plan: Heparin subcutaneously (6) Tobacco abuse Current Visit: Yes Status: Acute Assessment and Plan: encouraged tobacco cessation (7) Morbid obesity Current Visit: Yes Status: Acute Assessment and Plan: Continue to encourage lifestyle modification diet and exercise (8) Diarrhea Current Visit: Yes Status: Acute Assessment and Plan: Resolved - Time Spent with Patient Total time spent is greater than 50% in coordination of care (as documented) at patient's floor/unit and/or counseling patient: Plan of Care Discussed with: family Internal Medicine: Result - Labs CBC & Chem 7: 08/29/18 09:10 08/29/18 09:10 Labs: Short CBC 08/29/18 Range/Units 09:10 WBC 12.0 H (4.3-11.1) K/mcL Hgb 13.2 D (11.5-15.4) g/dL Hct 39.6 (35.3-44.9) % Plt Count 442 H (140-400) K/mcL BMP 08/29/18 09:10 Sodium 144 Potassium 3.8 Chloride 99 Carbon Dioxide 30 H BUN 7 Creatinine 0.77 Glucose 180 H Calcium 8.8 - ABG Interpretation ABG results: PT/INR, D-dimer PT 11.4 Seconds (9.4-12.1) 08/24/18 17:43 Consult Discharge Plan - Plan Referrals: NONE,PCP [Primary Care Provider] - (1) Cellulitis Qualifiers: Site of cellulitis: extremity Site of cellulitis of extremity: lower extremity Laterality: right Qualified Code(s): L03.115 - Cellulitis of right lower limb (2) Sepsis Qualifiers: Sepsis type: sepsis due to unspecified organism Qualified Code(s): A41.9 - Sepsis, unspecified organism (3) Diabetes Qualifiers: Diabetes mellitus type: type 2 Diabetes mellitus extermination inspector insulin use: without extermination inspector use Diabetes mellitus complication status: without complication Qualified Code(s): E11.9 - Type 2 diabetes mellitus without complications (4) GERD (gastroesophageal reflux disease) Qualifiers: Esophagitis presence: without esophagitis Qualified Code(s): K21.9 - Gastro- esophageal reflux disease without esophagitis (8) Diarrhea Qualifiers: Diarrhea type: unspecified type Qualified Code(s): R19.7 - Diarrhea, unspecified
[2018-08-29] MEDS: Insulin DETEMIR 100 UNIT/ML X5UNITS SQ SCH (11:43)
[2018-08-29 14:04] LABS: Eosinophils # 0.2 K/mcL (0.0-0.6); Lymphocytes # 1.9 K/mcL (0.6-4.6); Monocytes # 1.3 K/mcL (0.0-1.3)
--- NOTE | 2018-08-29 14:16 | Infectious Disease Consult ---
Infectious Disease-Consult - Encounter Date/Time Date of Encounter: 08/29/18 Time of Encounter: 14:10 - Data of Consult Patient: new to practice Reason for consult: Cellulitis Consult date: 08/29/18 Requesting Physician: Dillon Siddiqi Primary Care Provider: PCP NONE - HPI HPI: Patient is a 43-year-old woman who presented to [facility] 08/24/2018 as a direct admission for right lower extremity cellulitis, we are consulted on 08/29/2018 for antibiotics recommendations. Patient is a 43-year-old woman who has a past medical history significant for diabetes mellitus type 2, hypertension, dyslipidemia, GERD, who tells me that about 6 weeks prior to admission she had a blister that was initially on the anterior aspect of her right lower extremity. And now all her lesions are on the posterior aspect of her right lower extremity. Patient denies any fevers or chills at home. Patient does not know how well controlled her blood sugar is. Patient denied any headache, chest pain, URI symptoms, nausea or vomiting, diarrhea or constipation or urinary symptoms. History of present illness on admission states that the patient direct admission by think she has been transferred from the hospital. Temperature documented at the outside facility is 102 Fahrenheit. Since admission, patient has been afebrile with a MAXIMUM TEMPERATURE of 99.8, heart rate within normal limits and no tachypnea presenting WBC was 7.8 with normal differential. The rest of the chemistry was unremarkable. Wound culture and blood cultures were obtained on 08/24/2018 and all are no growth to date. On admission patient also had a CT lower extremity which was read as mild subcutaneous fat stranding of the right thigh and moderate subcutaneous fat stranding in the right leg compatible with cellulitis. No drainable fluid co llection. Skin list during along the posterior medial aspect of the right. Patient was empirically started on vancomycin and Zosyn. We were asked to evaluate the patient and make further recommendations. Currently patient laying in bed and appears comfortable no acute distress does not appear toxic. Vital signs reviewed. Review of systems unremarkable other than for severe pain in her right lower extremity. I asked if she had neuropathy she said yes but she still has pain. On physical exam patient had erythema seeping blistery drainage of the right lower extremity. There is also about 1 ulcerated lesion probably stage III. - ROS Review of Systems: 10 point review of systems done, negative other for what is mentioned in the history of present illness. - Results CBC & Chem 7: 08/29/18 09:10 08/29/18 09:10 - Exam Vitals: Temp Pulse Resp BP Pulse Ox 98.1 F 72 16 127/78 93 08/29/18 11:25 08/29/18 11:25 08/29/18 11:25 08/29/18 11:25 08/29/18 11:25 Exam: GENERAL: Laying in bed, appears comfortable. HEAD: Normocephalic atraumatic EYES: PERRLA, EOMI, no conjunctival hemorrhage, sclera anicteric ENT: Mucous membranes moist, no oral thrush NECK: Supple. No meningeal signs. No masses LUNGS: Chest expanding symmetrically. Lungs sounds audible both lung tidwell. No wheezing, no rhonchi CV: RRR, S1S2, ABDOMEN: Soft, nontender, nondistended. Bowel sounds audible BACK: No CVA tenderness. Normal inspection. No tenderness over the spine EXTREMITY: RLE with blisters about 4 cm in diameter with yellowish discoloration and seeping serous fluid SKIN: Normal color. No rash. NEURO: Awake alert oriented 3. No obvious focal deficit PSYCH: Calm and appropriate. No agitation. Albuterol Sulfate [Ventolin Hfa] 2 puff IH Q6H PRN 08/24/18 [History] Aripiprazole [Abilify] 20 mg PO QPM 08/24/18 [History] Atorvastatin [Lipitor] 10 mg PO DAILY 08/24/18 [History] Calcium Carbonate/Vitamin D3 [Calcium 600-Vit D3 200 Tablet] 1 tab PO DAILY 08/24/18 [History] Ergocalciferol (VITAMIN D2) [Vitamin D2] 50,000 unit PO TU 08/24/18 [History] Estradiol [Estrace] 1 mg PO DAILY 08/24/18 [History] Fluticasone Propionate Nasal [Flonase] 1 spray NS BID 08/24/18 [History] Furosemide [Lasix] 20 mg PO QAM 08/24/18 [History] Glimepiride [Amaryl] 4 mg PO DAILY 08/24/18 [History] Hyoscyamine Sulfate [Hyoscyamine Sulfate ER] 0.375 mg PO Q12H 08/24/18 [History] Lactobacillus [Culturelle] 1 cap PO BID 08/24/18 [History] Lisinopril [Zestril] 5 mg PO DAILY PRN 08/24/18 [History] Loperamide [Imodium] 2 mg PO BID 08/24/18 [History] Loratadine [Claritin] 10 mg PO DAILY 08/24/18 [History] Melatonin 5 - 10 mg PO HS PRN 08/24/18 [History] Metformin HCl [Glucophage Xr] 2,250 mg PO QPM 08/24/18 [History] Mometasone/Formoterol [Dulera 200 Mcg/5 Mcg Inhaler] 2 puff IH BID 08/24/18 [History] Multivitamin with Iron [One Daily with Iron] 1 tab PO DAILY 08/24/18 [History] Omeprazole [PriLOSEC] 40 mg PO QPM 08/24/18 [History] Ondansetron HCl 8 mg PO BID PRN 08/24/18 [History] Oxazepam 10 mg PO BID PRN 08/24/18 [History] Vitamin E 1,000 unit PO DAILY 08/24/18 [History] Allergy/AdvReac Type Severity Reaction Status Date / Time naproxen AdvReac Agitated Verified 02/16/18 07:31 - Assessment and Plan (1) Sepsis Current Visit: Yes Status: Acute resolved; didnt meet sepsis criteria here Qualifiers: Sepsis type: sepsis due to unspecified organism Qualified Code(s): A41.9 - Sepsis, unspecified organism SNOMED Code(s): 64794676 (2) Cellulitis Current Visit: Yes Status: Acute at OSH patient had (sepsis) with fever and leukocytosis on admission, swab and blood cultures negative CT 08/24: Mild subcutaneous fat stranding of the right thigh and moderate subcutaneous fat stranding in the right leg compatible with cellulitis. No drainable fluid collection. Skin blistering along the posteromedial aspect of the right calf. Patient has been on vancomycin/zosyn since 08/24 with no improvement, if anything patient and tell me it's looking worse repeat swab culture from the ulcerated wound repeat CT consult surgery to evaluate; might need derm to evaluate as well continue vanc/zosyn for now goal vanc trough around 10 monitor labs and for drug toxicity Qualifiers: Site of cellulitis: extremity Site of cellulitis of extremity: lower extremity Laterality: right Qualified Code(s): L03.115 - Cellulitis of right lower limb SNOMED Code(s): 048019023 (3) Diabetes Current Visit: Yes Status: Acute Qualifiers: Diabetes mellitus type: type 2 Diabetes mellitus residential insulin use: without residential use Diabetes mellitus complication status: without complication Qualified Code(s): E11.9 - Type 2 diabetes mellitus without complications SNOMED Code(s): 73470224 (4) Tobacco abuse Current Visit: Yes Status: Acute SNOMED Code(s): 065385254 (5) Diarrhea Current Visit: Yes Status: Acute patient states she had 3 BM on 08/28; only on today C diff tested on 08/25 and is negative Qualifiers: Diarrhea type: unspecified type Qualified Code(s): R19.7 - Diarrhea, unspecified SNOMED Code(s): 72729871 Past Med Surg Social Fam HX - Past Medical History Medical history: asthma, diabetes Psychiatric history: anxiety - Past Surgical History Surgical History: cholecystectomy, hysterectomy Additional surgical history: thyroid nodule - Social History Smoking Status: Current every day smoker Packs per day: 1 Smokeless Tobacco Status: No Alcohol use: none Consult Discharge Plan - Plan Referrals: NONE,PCP [Primary Care Provider] -
[2018-08-29] MEDS: ARIPiprazole 10 MG TABLET PO SCH (17:18)
[2018-08-29] MEDS: Melatonin 3 MG TABLET PO PRN (23:56)
[2018-08-30] MEDS: *HR* HYDROcodone/Acet 5/325 mg TABLET PO PRN ×3 (03:14→16:01)
[2018-08-30] MEDS: *HR* Heparin 5,000 UNIT/ML VIAL SQ SCH ×3 (06:09→22:59)
[2018-08-30] MEDS: Budesonide/Formoterol 160/4.5 1 PUFF INH IH SCH ×2 (07:41→21:44)
[2018-08-30 08:04] LABS: Hematocrit 40.7 % (35.3-44.9); Hemoglobin 13.4 g/dL (11.5-15.4); Lymphocytes # 1.9 K/mcL (0.6-4.6); Mean Corpuscular HGB Conc 32.9 g/dL (31.6-35.5); Mean Corpuscular Hemoglobin 30.5 pg (28.0-33.3); Mean Corpuscular Volume 92.5 fL (83.0-100.0); Mean Platelet Volume 9.1 fL (9.4-12.4); Platelet Count 444 K/mcL (140-400); Red Cell Distribution Width 13.6 % (11.5-14.5); White Blood Count 11.4 K/mcL (4.3-11.1)
[2018-08-30 08:23] LABS: BUN/Creatinine Ratio 10 (6-26); Blood Urea Nitrogen 8 mg/dL (6-20); Calcium 8.9 mg/dL (8.6-10.3); Carbon Dioxide 28 mEq/L (23-29); Chloride 102 mEq/L (98-107); Glucose 124 mg/dL (70-105); Osmolality,Calculated 288 (280-300); Potassium 3.8 mEq/L (3.5-5.1); Sodium 139 mEq/L (136-145); eGFR For African Americans > 60 (> 60); eGFR For Non-African Americans > 60 (> 60)
[2018-08-30] MEDS: Vitamin E 200 UNIT (90MG) CAPSULE PO SCH (08:25)
[2018-08-30] MEDS: Multivit/Ca/Min/Fe/FA 1 TAB TABLET PO SCH (08:25)
[2018-08-30] MEDS: Cholecalciferol (D-3) 1,000 UNIT (25MCG) TABLET PO SCH (08:25)
[2018-08-30] MEDS: Lactobacillus 1 EACH CAP.SPRINK PO SCH ×2 (08:26→20:04)
[2018-08-30] MEDS: Furosemide 20 MG TABLET PO SCH (08:26)
[2018-08-30] MEDS: Famotidine 20 MG TABLET PO SCH ×2 (08:26→20:04)
[2018-08-30] MEDS: Nicotine 21 MG PATCH.TD24 TD SCH (08:26)
[2018-08-30] MEDS: Loratadine 10 MG TABLET PO SCH (08:26)
[2018-08-30] MEDS: Piperacillin/Tazobactam 3.375 GM in 0.9 % Sodium Chloride Mini Bag 100 ML IVPB SCH ×3 (08:27→22:58)
[2018-08-30] MEDS: Insulin LISPRO 300 UNITS/3 ML VIAL SQ SCH ×4 (08:29→20:14)
[2018-08-30] MEDS: Fluticasone Propionate Nasal 50 MCG/SPRAY BOTTLE NS SCH ×2 (08:59→20:08)
[2018-08-30] MEDS: Insulin DETEMIR 100 UNIT/ML X5UNITS SQ SCH (09:32)
[2018-08-30 09:57] LABS: Eosinophils # 0.1 K/mcL (0.0-0.6); Monocytes # 0.5 K/mcL (0.0-1.3); Neutrophils # 8.4 K/mcL (1.6-8.9)
[2018-08-30 09:59] LABS: Polychromasia 1+ (Not Present)
--- NOTE | 2018-08-30 13:19 | Infectious Disease Progress No ---
ID Progress Note Date of Encounter: 08/30/18 Time of Encounter: 12:25 - Subjective Subjective: Patient seen and examined. No acute events noted overnight. Patient states overall she feels better but continues to have a significant amount of pain in her right leg with ambulation or weight-bearing. Denies fevers, chills, or rigors. Denies chest pain, shortness of breath, or cough. Reports some intermittent nausea, but denies vomiting, diarrhea, or abdominal pain. Denies oral thrush or skin rashes. States her appetite is good. - Objective CBC & Chem 7: 08/30/18 07:52 08/30/18 07:52 - Exam Vitals: Temp Pulse Resp BP Pulse Ox 98.3 F 69 16 128/84 95 08/30/18 11:11 08/30/18 11:11 08/30/18 11:11 08/30/18 11:11 08/30/18 11:11 Exam: Head: Atraumatic, normal inspection, normocephalic. Eye: EOMI, PERRLA, no scleral icterus noted. ENT: Mucous membranes moist. No odontogenic infection noted. Neck: Normal inspection, no meningismus. Respiratory: Clear to auscultation. No rales, respiratory distress, rhonchi, or wheezes noted. Cardiovascular: Regular rate and rhythm, S1 and S2 audible. No murmurs, rubs, or gallops. GI: Soft, nondistended, normal bowel sounds. Extremities:No joint swelling, pedal edema, or tenderness noted. RLE dressing C/D/I. Neurological: Alert, oriented 3, no focal deficits. Psychiatric: normal affect, normal mood. Skin: Dry, intact, warm. Normal color. No rashes. - Assessment and Plan (1) Sepsis Current Visit: Yes Status: Acute Noted at OSH. Likely secondary to RLE infection. Resolved. Blood cultures drawn 08/24/18 are negative x 2 sets. Qualifiers: Sepsis type: sepsis due to unspecified organism Qualified Code(s): A41.9 - Sepsis, unspecified organism SNOMED Code(s): 70649575 (2) Cellulitis Current Visit: Yes Status: Acute Location: RLE. Causative organism: Unclear. CT of the RLE 08/24/18 Mild subcutaneous fat stranding of the right thigh and moderate subcutaneous fat stranding in the right leg compatible with cellulitis. No drainable fluid collection. Skin blistering along the posteromedial aspect of the right calf. Swab culture of the wound negative. Patient has been on vancomycin/zosyn since 08/24 with no improvement. Patient's significant other states it is looking worse. Repeat wound culture is no growth. MRI of the RLE non-revealing. Currently on Vanc and Zosyn. Qualifiers: Site of cellulitis: extremity Site of cellulitis of extremity: lower extremity Laterality: right Qualified Code(s): L03.115 - Cellulitis of right lower limb SNOMED Code(s): 902617610 (3) Diarrhea Current Visit: Yes Status: Acute Likely secondary to antibiotics. Improved. States more formed and less frequent. C diff tested on 08/25 and is negative. Supportive care per the primary team. Probiotics daily. Qualifiers: Diarrhea type: unspecified type Qualified Code(s): R19.7 - Diarrhea, unspecified SNOMED Code(s): 38781221 (4) Diabetes Current Visit: Yes Status: Acute Recommend aggressive glucose monitoring and control to promote wound healing and prevent re-infection. Management per the primary team. Qualifiers: Diabetes mellitus type: type 2 Diabetes mellitus watcher automat long goods insulin use: without watcher automat long goods use Diabetes mellitus complication status: without complication Qualified Code(s): E11.9 - Type 2 diabetes mellitus without complications SNOMED Code(s): 60166764 (5) GERD (gastroesophageal reflux disease) Current Visit: Yes Status: Acute Qualifiers: Esophagitis presence: without esophagitis Qualified Code(s): K21.9 - Gastro-esophageal reflux disease without esophagitis SNOMED Code(s): 334872380 (6) Tobacco abuse Current Visit: Yes Status: Acute SNOMED Code(s): 172473447 (7) Morbid obesity Current Visit: Yes Status: Acute SNOMED Code(s): 416073943 - Recommendations Recommendations: Await repeat wound cultures. Consider surgery and/or dermatology to evaluate. Continue Vancomycin IV. Pharmacy to dose. Goal trough ~15. Continue Zosyn 3.375 grams IV Q8H. Duration of treatment depends on the clinical picture. Monitor renal function and for drug toxicity and dose-adjust antibiotics. Consult Discharge Plan - Plan Referrals: NONE,PCP [Primary Care Provider] - - Attending Attestation I have personally performed a face to face evaluation on this patient. I have reviewed and agree with the care plan. History and Exam by me shows: Assessment and plan: 1.Sepsis 2.Cellulitis 3.Diarrhea 4.Diabetes mellitus type 2 5.GERD Recommendations Not sure whether clinically the patient is doing worse on MRI and clinically compared to the previous CT. Patient has been on vancomycin and Zosyn for quite some time. Atypical infection versus noninfectious etiology is high on my desk. Await surgery or dermatology to evaluate. In the meantime continue broad- spectrum antibiotics.
[2018-08-30] MEDS: ARIPiprazole 10 MG TABLET PO SCH (18:12)
--- NOTE | 2018-08-30 18:12 | Internal Med Progress Note ---
Hospitalist Progress Note - Encounter Date of Encounter: 08/30/18 Time of Encounter: 10:00 - Subjective Interval History: Ms Mcdowell was evaluated by ID specialist. Per conversation with the ID specialist MRI of the LE was ordered which confirmed the previous findings from the CT scan of the skin and soft tissue infection but with severe circumferen tial edema of the subcutaneous fat tissue. Surgical consult is also pending we appreciate input, input from ID specialist. We will continue Vanco and Zosyn for now repeat wound culture has been negative so far - Exam Vitals: Temp Pulse Resp BP Pulse Ox 98.3 F 68 16 131/81 94 08/30/18 15:44 08/30/18 15:44 08/30/18 15:44 08/30/18 15:44 08/30/18 15:44 Exam: GEN: NAD, A&O x 3, Pleasant and conversant SKIN: [place] warm acyanotic not jaundice HEART: RRR, no murmurs LUNGS: CTA no wheeze or crackles, overall non labored ABDOMEN; Soft, non tender or distended, BS x 4 normactive EXT: Right LE diffuse edema, dressing intact with no stains, Pedal pulses 1+, radial pulses 2+ PSYCH: Mood and affect is appropriate - Assessment and Plan (1) Soft tissue infection Current Visit: Yes Status: Acute Assessment and Plan: Patient initially presented with cellulitis and was treated with IV antibiotics which resolved the right lower extremity erythema however she has significant soft tissue infection per MRI and CT of the right lower extremity. That has had negative wound culture 2 although anaerobic culture is pending. There is concern possible bullous pemphigoid although her presentation does not quite fit the picture. Will be evaluated by surgery team tomorrow, ID physician is following. She might require a registered medical transcriptionist follow-up if her skin and soft tissue infection and wound is not from an infectious cause. (2) Cellulitis Current Visit: Yes Status: Acute Assessment and Plan: Her initial presentation of LE erythema receeded with Zosyn and vancomycin, however has skin and soft tissue edema is worse than initial presentation, wound culture was negative x 2 but an anaerobic culture is pending. blood culture was negative. physical exam finding yesterday of the right LE is significant for bullae pemphigoid type reaction which could also be from a staph or strep infection or dermatological. Surgery team will evaluate patient for possible debridement or biopsy (3) Sepsis Current Visit: Yes Status: Acute Assessment and Plan: Resolved blood culture negative so far on Zosyn and vancomycin, afebrile with mild leukocytosis (4) Diabetes Current Visit: Yes Status: Acute Assessment and Plan: Discussed with patient importance of glycemic control point of care glucose 124 - 180 continue short acting insulin will add basal coverage. Glycermic control needed for proper wound healing. (5) GERD (gastroesophageal reflux disease) Current Visit: Yes Status: Acute Assessment and Plan: Stable chronic switch PPI to H2 monica due to increased risk for C. difficile colitis (6) DVT prophylaxis Current Visit: Yes Status: Acute Assessment and Plan: Heparin subcutaneously (7) Tobacco abuse Current Visit: Yes Status: Acute Assessment and Plan: encouraged tobacco cessation (8) Morbid obesity Current Visit: Yes Status: Acute Assessment and Plan: Continue to encourage lifestyle modification diet and exercise (9) Diarrhea Current Visit: Yes Status: Acute Assessment and Plan: Resolved - Time Spent with Patient Total time spent is greater than 50% in coordination of care (as documented) at patient's floor/unit and/or counseling patient: Internal Medicine: Result - Labs CBC & Chem 7: 08/30/18 07:52 08/30/18 07:52 Labs: Short CBC 08/30/18 Range/Units 07:52 WBC 11.4 H (4.3-11.1) K/mcL Hgb 13.4 (11.5-15.4) g/dL Hct 40.7 (35.3-44.9) % Plt Count 444 H (140-400) K/mcL Neutrophils # 8.4 (1.6-8.9) K/mcL BMP 08/30/18 07:52 Sodium 139 Potassium 3.8 Chloride 102 Carbon Dioxide 28 BUN 8 Creatinine 0.81 Glucose 124 H Calcium 8.9 - ABG Interpretation ABG results: PT/INR, D-dimer PT 11.4 Seconds (9.4-12.1) 08/24/18 17:43 - Impressions Impressions Lower Extremity MRI 08/29/18 20:45 IMPRESSION: 1. Skin ulceration posterior to the medial femoral condyle extends 14 mm deep into the subcutaneous fat, without invasion of the sub adjacent medial head of the gastrocnemius. 2. Severe circumferential edema of the subcutaneous fat of the entire right lower leg, right ankle and visualized right foot, worsened since prior CT. No drainable soft tissue abscess. D/ / Adina Cabral MD / Adina Cabral MD Interpreting Provider: Adina Cabral MD Consult Discharge Plan - Plan Referrals: NONE,PCP [Primary Care Provider] - (2) Cellulitis Qualifiers: Site of cellulitis: extremity Site of cellulitis of extremity: lower extre mity Laterality: right Qualified Code(s): L03.115 - Cellulitis of right lower limb (3) Sepsis Qualifiers: Sepsis type: sepsis due to unspecified organism Qualified Code(s): A41.9 - Sepsis, unspecified organism (4) Diabetes Qualifiers: Diabetes mellitus type: type 2 Diabetes mellitus long winder tender insulin use: without longterm use Diabetes mellitus complication status: without complication Qualified Code(s): E11.9 - Type 2 diabetes mellitus without complications (5) GERD (gastroesophageal reflux disease) Qualifiers: Esophagitis presence: without esophagitis Qualified Code(s): K21.9 - Gastro- esophageal reflux disease without esophagitis (9) Diarrhea Qualifiers: Diarrhea type: unspecified type Qualified Code(s): R19.7 - Diarrhea, unspecified
[2018-08-30] MEDS: *HR* OxyCODONE Immed Rel 5 MG TABLET PO PRN ×2 (20:23)
[2018-08-30] MEDS: Nystatin Cream 15 GM TUBE TP SCH (22:58)
[2018-08-31] MEDS: *HR* Heparin 5,000 UNIT/ML VIAL SQ SCH ×3 (05:07→21:52)
[2018-08-31] MEDS: Budesonide/Formoterol 160/4.5 1 PUFF INH IH SCH ×2 (07:38→20:19)
--- NOTE | 2018-08-31 08:25 | Internal Med Progress Note ---
Hospitalist Progress Note - Encounter Date of Encounter: 08/31/18 Time of Encounter: 08:22 - Subjective Interval History: The patient was seen on examination of the bedside Still has right leg pain with swallowing and blistering skin lesion on erythema base. did order venous Doppler to r/o DVT consulted G surgery may need skin biopsy no fever - Exam Vitals: Temp Pulse Resp BP Pulse Ox 98.8 F 73 18 118/76 93 08/31/18 06:28 08/31/18 06:28 08/31/18 07:39 08/31/18 06:28 08/31/18 07:39 Exam: GEN: NAD, A&O x 3, Pleasant and conversant SKIN: [place] warm acyanotic not jaundice HEART: RRR, no murmurs LUNGS: CTA no wheeze or crackles, overall non labored ABDOMEN; Soft, non tender or distended, BS x 4 normactive EXT: Right LE diffuse edema, tenderness and blistering skin lesion on erythema base Pedal pulses 1+, radial pulses 2+ PSYCH: Mood and affect is appropriate DVT Prophylaxis: Heparin - Summary of Assessment and Plan Summary of Assessment and Plan: (1) Soft tissue infection with cellulitis versus skin disorder Current Visit: Yes Status: Acute Assessment and Plan: still has right LE edema with tenderness causative organism unclear CT of the RLE 08/24/18 Mild subcutaneous fat stranding of the right thigh and moderate subcutaneous fat stranding in the right leg compatible with cellulitis. No drainable fluid collection. Skin blistering along the posteromedial aspect of the right calf. Swab culture of the wound negative. Patient has been on vancomycin/zosyn since 08/24 with no improvement. Patient's significant other states it is looking worse. Repeat wound culture is no growth. MRI of the RLE show Skin ulceration posterior to the medial femoral condyle extends 14 mm deep into the subcutaneous fat, without invasion of the sub adjacent medial head of the gastrocnemius. with Severe circumferential edema of the subcutaneous fat of the entire right lower leg, right ankle and visualized right foot, worsened since prior CT. No drainable soft tissue abscess. Currently on Vanc and Zosyn. consult surgery order venous doppler may need skin biopsy (3) Sepsis Current Visit: Yes Status: Acute Assessment and Plan: Resolved blood culture negative so far on Zosyn and vancomycin, afebrile with mild leukocytosis (4) Diabetes Current Visit: Yes Status: Acute Assessment and Plan: glycemic control is important , could be pyodrma gangrenousum? point of care glucose 124 - 180 continue short acting insulin and basal coverage. Glycermic control needed for proper wound healing. check A1c (5) GERD (gastroesophageal reflux disease) Current Visit: Yes Status: Acute Assessment and Plan: Stable chronic switch PPI to H2 monica due to increased risk for C. difficile colitis (6) DVT prophylaxis Current Visit: Yes Status: Acute Assessment and Plan: Heparin subcutaneously (7) Tobacco abuse Current Visit: Yes Status: Acute Assessment and Plan: encouraged tobacco cessation (8) Morbid obesity Current Visit: Yes Status: Acute Assessment and Plan: Continue to encourage lifestyle modification diet and exercise diarrhea : resolved C diff tested on 08/25 and is negative. - Time Spent with Patient Total time spent is greater than 50% in coordination of care (as documented) at patient's floor/unit and/or counseling patient: Internal Medicine: Result - Labs CBC & Chem 7: 08/30/18 07:52 08/30/18 07:52 Labs: Short CBC 08/30/18 Range/Units 07:52 Neutrophils # 8.4 (1.6-8.9) K/mcL BMP 08/30/18 07:52 Sodium 139 Potassium 3.8 Chloride 102 Carbon Dioxide 28 BUN 8 Creatinine 0.81 Glucose 124 H Calcium 8.9 - ABG Interpretation ABG results: PT/INR, D-dimer PT 11.4 Seconds (9.4-12.1) 08/24/18 17:43 Consult Discharge Plan - Plan Referrals: NONE,PCP [Primary Care Provider] -
[2018-08-31] MEDS: Famotidine 20 MG TABLET PO SCH ×2 (08:55→21:51)
[2018-08-31] MEDS: Loratadine 10 MG TABLET PO SCH (08:55)
[2018-08-31] MEDS: Furosemide 20 MG TABLET PO SCH (08:55)
[2018-08-31] MEDS: Cholecalciferol (D-3) 1,000 UNIT (25MCG) TABLET PO SCH (08:55)
[2018-08-31] MEDS: Multivit/Ca/Min/Fe/FA 1 TAB TABLET PO SCH (08:55)
[2018-08-31] MEDS: Piperacillin/Tazobactam 3.375 GM in 0.9 % Sodium Chloride Mini Bag 100 ML IVPB SCH ×2 (08:56→16:07)
[2018-08-31] MEDS: Nicotine 21 MG PATCH.TD24 TD SCH (08:56)
[2018-08-31] MEDS: Lactobacillus 1 EACH CAP.SPRINK PO SCH ×2 (08:56→21:51)
[2018-08-31] MEDS: Insulin LISPRO 300 UNITS/3 ML VIAL SQ SCH ×4 (08:59→21:43)
[2018-08-31] MEDS: Insulin DETEMIR 100 UNIT/ML X5UNITS SQ SCH (09:10)
[2018-08-31] MEDS: Vitamin E 200 UNIT (90MG) CAPSULE PO SCH (09:11)
[2018-08-31] MEDS: Fluticasone Propionate Nasal 50 MCG/SPRAY BOTTLE NS SCH ×2 (09:12→21:52)
[2018-08-31 09:51] LABS: Estimated Average Glucose 137 mg/dl
--- NOTE | 2018-08-31 11:25 | Infectious Disease Progress No ---
ID Progress Note Date of Encounter: 08/31/18 Time of Encounter: 11:22 - Subjective Subjective: Patient seen and examined. No acute events noted overnight. Patient states overall she feels better but continues to have a significant amount of pain in her right leg with ambulation or weight-bearing. Denies fevers, chills, or rigors. Denies chest pain, shortness of breath, or cough. Reports some intermittent nausea, but denies vomiting, diarrhea, or abdominal pain. States stools are loose. Denies oral thrush or skin rashes. States her appetite is good. - Objective CBC & Chem 7: 08/30/18 07:52 08/30/18 07:52 - Exam Vitals: Temp Pulse Resp BP Pulse Ox 98.3 F 67 16 134/85 92 08/31/18 11:00 08/31/18 11:00 08/31/18 11:00 08/31/18 11:00 08/31/18 11:00 Exam: Head: Atraumatic, normal inspection, normocephalic. Eye: EOMI, PERRLA, no scleral icterus noted. ENT: Mucous membranes moist. No odontogenic infection noted. Neck: Normal inspection, no meningismus. Respiratory: Clear to auscultation. No rales, respiratory distress, rhonchi, or wheezes noted. Cardiovascular: Regular rate and rhythm, S1 and S2 audible. No murmurs, rubs, or gallops. GI: Soft, nondistended, normal bowel sounds. Extremities:Erythema with bullous lesions noted to the right lower leg, warm to touch and tender. Serous drainage noted on the old dressing. Neurological: Alert, oriented 3, no focal deficits. Psychiatric: normal affect, normal mood. Skin: Dry, intact, warm. Normal color. No rashes. - Assessment and Plan (1) Sepsis Current Visit: Yes Status: Acute Noted at OSH. Likely secondary to RLE infection. Resolved. Blood cultures drawn 08/24/18 are negative x 2 sets. Qualifiers: Sepsis type: sepsis due to unspecified organism Qualified Code(s): A41.9 - Sepsis, unspecified organism SNOMED Code(s): 21691121 (2) Cellulitis Current Visit: Yes Status: Acute Location: RLE. Causative organism: Unclear. CT of the RLE 7/17/19 Mild subcutaneous fat stranding of the right thigh and moderate subcutaneous fat stranding in the right leg compatible with cellulitis. No drainable fluid collection. Skin blistering along the posteromedial aspect of the right calf. Swab culture of the wound negative. Patient has been on vancomycin/zosyn since 08/24 with minimal improvement. Repeat wound culture is no growth. MRI of the RLE non-revealing. Not sure if this is truly cellulitis vs. something else. Currently on Vanc and Zosyn. Qualifiers: Site of cellulitis: extremity Site of cellulitis of extremity: lower extremity Laterality: right Qualified Code(s): L03.115 - Cellulitis of right lower limb SNOMED Code(s): 012359193 (3) Diarrhea Current Visit: Yes Status: Acute Likely secondary to antibiotics. Improved. States more formed and less frequent. C diff tested on 08/25 and is negative. Supportive care per the primary team. Probiotics daily. Qualifiers: Diarrhea type: unspecified type Qualified Code(s): R19.7 - Diarrhea, unspecified SNOMED Code(s): 37622007 (4) Diabetes Current Visit: Yes Status: Acute Recommend aggressive glucose monitoring and control to promote wound healing and prevent re-infection. Management per the primary team. 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 use Diabetes mellitus complication status: without complication Qualified Code(s): E11.9 - Type 2 diabetes mellitus without complications SNOMED Code(s): 30527211 (5) GERD (gastroesophageal reflux disease) Current Visit: Yes Status: Acute Qualifiers: Esophagitis presence: without esophagitis Qualified Code(s): K21.9 - Gastro-esophageal reflux disease without esophagitis SNOMED Code(s): 890712862 (6) Tobacco abuse Current Visit: Yes Status: Acute SNOMED Code(s): 804142134 (7) Morbid obesity Current Visit: Yes Status: Acute SNOMED Code(s): 222687489 - Recommendations Recommendations: Await repeat wound cultures. Consider surgery and/or dermatology to evaluate. Continue Vancomycin IV. Pharmacy to dose. Goal trough ~15. Continue Zosyn 3.375 grams IV Q8H. Duration of treatment depends on the clinical picture. Can transition to PO Bactrim DS 1 tab BID and Keflex 500mg PO TID when ready for discharge to complete a 14 day course (treat through 09/06/18). Monitor renal function and for drug toxicity and dose-adjust antibiotics. No further recommendations from the ID team. We will sign off. Please re-consult if needed. Consult Discharge Plan - Plan Referrals: NONE,PCP [Primary Care Provider] -
[2018-08-31] MEDS: *HR* HYDROcodone/Acet 5/325 mg TABLET PO PRN ×2 (12:52→21:57)
--- NOTE | 2018-08-31 13:51 | AcuteCare Surgery Consult Note ---
<Rosalie Rios Scout - Last Filed: 08/31/18 13:46> Date of Encounter: 08/31/18 Time of Encounter: 13:30 Assessment and Plan (1) Cellulitis Current Visit: Yes Status: Acute Right lower extremity Dr. Prasad to biopsy the affected leg for further evaluation Continue Vancomycin and Zosyn Supportive care Wound care Diabetic management per medicine team Will continue to follow and assess progress Qualifiers: Site of cellulitis: extremity Site of cellulitis of extremity: lower extremity Laterality: right Qualified Code(s): L03.115 - Cellulitis of right lower limb History of Present Illness Consult date: 08/31/18 Reason for consult: other (RLE wound/cellulitis) History of present illness: Mrs. Mcdowell is a very pleasant 43 year old female who states that she has been in the hospital for the past week due to RLE leg pain and swelling. She states that approximately 6 weeka ago she woke up and noticed that she had a sore to her right anterior ankle. She does not recall being bitten by anything. Denies any trauma to the area. She states that initial area healed and that her posterior leg became red and started to spread up into her right thigh. Her leg was also swollen. She reports significant pain associated with these symptoms. She also reports fevers up to 102. She has been on IV antibiotics for the past week. She states that her symptoms have significantly improved with IV antibiotics. She has never experienced any symptoms like this in the past. We have been asked to see an evaluate her for recommendations. 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, IBS with diarrhea, Kidney stones, Anemia Psychiatric history: anxiety - Past Surgical History Surgical History: cholecystectomy, hysterectomy Additional surgical history: thyroid nodule removal, endometrial ablation, EGD/Colonoscopy 02/2018 - Social History Smoking Status: Current every day smoker Packs per day: 1 Smokeless Tobacco Status: No Alcohol use: none Current living situation: Home - Independent Activity Level: Independent ambulation Medications and Allergies Albuterol Sulfate [Ventolin Hfa] 2 puff IH Q6H PRN 08/24/18 [History] Aripiprazole [Abilify] 20 mg PO QPM 08/24/18 [History] Atorvastatin [Lipitor] 10 mg PO DAILY 08/24/18 [History] Calcium Carbonate/Vitamin D3 [Calcium 600-Vit D3 200 Tablet] 1 tab PO DAILY 08/24/18 [History] Ergocalciferol (VITAMIN D2) [Vitamin D2] 50,000 unit PO TU 08/24/18 [History] Estradiol [Estrace] 1 mg PO DAILY 08/24/18 [History] Fluticasone Propionate Nasal [Flonase] 1 spray NS BID 08/24/18 [History] Furosemide [Lasix] 20 mg PO QAM 08/24/18 [History] Glimepiride [Amaryl] 4 mg PO DAILY 08/24/18 [History] Hyoscyamine Sulfate [Hyoscyamine Sulfate ER] 0.375 mg PO Q12H 08/24/18 [History] Lactobacillus [Culturelle] 1 cap PO BID 08/24/18 [History] Lisinopril [Zestril] 5 mg PO DAILY PRN 08/24/18 [History] Loperamide [Imodium] 2 mg PO BID 08/24/18 [History] Loratadine [Claritin] 10 mg PO DAILY 08/24/18 [History] Melatonin 5 - 10 mg PO HS PRN 08/24/18 [History] Metformin HCl [Glucophage Xr] 2,250 mg PO QPM 08/24/18 [History] Mometasone/Formoterol [Dulera 200 Mcg/5 Mcg Inhaler] 2 puff IH BID 08/24/18 [History] Multivitamin with Iron [One Daily with Iron] 1 tab PO DAILY 08/24/18 [History] Omeprazole [PriLOSEC] 40 mg PO QPM 08/24/18 [History] Ondansetron HCl 8 mg PO BID PRN 08/24/18 [History] Oxazepam 10 mg PO BID PRN 08/24/18 [History] Vitamin E 1,000 unit PO DAILY 08/24/18 [History] Allergy/AdvReac Type Severity Reaction Status Date / Time naproxen AdvReac Agitated Verified 02/16/18 07:31 Review of Systems All systems PM: reviewed and no additional remarkable complaints except as stated (in the HPI) All systems PM: The remainder of the systems were reviewed and are negative General Surgery Exam Initial Vital Signs Pulse Ox 100 08/24/18 16:51 - General physical appearance well developed, well nourished, no distress, obese - Eyes normal ocular movement - ENT normal mucosa, atraumatic, normocephalic - Neck trachea midline - Respiratory normal respiratory effort, clear to auscultation - Abdomen Abdomen general surgery: Present: bowel sounds present, soft, non tender - Integumentary Integumentary general surgery: Present: other (Right lower leg with erythema and swelling noted, blisters noted (open with serous fluid noted), moderate amount of serous drainage without odor, mild nodularity noted to anerior portion of lower leg, mildly tender to examination.) - Neurologic Present: CN 2-12 grossly intact - Psychiatric Psychiatric general surgery: Present: appropriate, oriented to person, oriented to place, oriented to time, speech is normal, memory intact Exam Initial Vital Signs Pulse Ox 100 08/24/18 16:51 Results - Labs 08/30/18 07:52 08/30/18 07:52 Abnormal lab results WBC 11.4 K/mcL (4.3-11.1) H 08/30/18 07:52 Plt Count 444 K/mcL (140-400) H 08/30/18 07:52 MPV 9.1 fL (9.4-12.4) L 08/30/18 07:52 Immature Gran % 11.3 % (0-4) H 08/28/18 01:53 Band Neutrophils % 6.0 % (0-4) H 08/29/18 09:10 Metamyelocytes % 3.0 % (0) H 08/30/18 07:52 Myelocytes % 1.0 % (0) H 08/30/18 07:52 Reactive Lymphocytes Present (Not Present) A 08/24/18 17:43 Platelet Estimate Slight increase (Normal) H 08/30/18 07:52 Polychromasia 1+ (Not Present) A 08/30/18 07:52 Potassium 3.4 mEq/L (3.5-5.1) L 08/27/18 02:19 Carbon Dioxide 30 mEq/L (23-29) H 08/29/18 09:10 Glucose 124 mg/dL (70-105) H 08/30/18 07:52 POC Glucose 169 mg/dL (70-99) H 08/30/18 12:15 Hemoglobin A1c 6.4 % (-5.6) H 08/31/18 07:52 Calculated Osmolality 301 (280-300) H 08/29/18 09:10 Calcium 8.1 mg/dL (8.6-10.3) L 08/28/18 01:53 Serum Total Protein 6.3 g/dL (6.4-8.9) L 08/24/18 17:43 Vancomycin Trough 15 mcg/mL (5-10) H 08/30/18 07:52 Diabetes panel 08/31/18 Range/Units 07:52 Hemoglobin A1c 6.4 H ( - 5.6) % All other labs normal. - Imaging Additional studies: Lower Extremity CT 08/24/18 17:24 IMPRESSION: 1. Mild subcutaneous fat stranding of the right thigh and moderate subcutaneous fat stranding in the right leg compatible with cellulitis. No drainable fluid collection. Skin blistering along the posteromedial aspect of the right calf. 2. Mild likely reactive right inguinal lymphadenopathy. 3. No acute osseous abnormality. D/ / Rios Dangelo MD / Rios Dangelo MD Interpreting Provider: Rios Dangelo MD Lower Extremity MRI 08/29/18 20:45 IMPRESSION: 1. Skin ulceration posterior to the medial femoral condyle extends 14 mm deep into the subcutaneous fat, without invasion of the sub adjacent medial head of the gastrocnemius. 2. Severe circumferential edema of the subcutaneous fat of the entire right lower leg, right ankle and visualized right foot, worsened since prior CT. No drainable soft tissue abscess. D/ / Adina Cabral MD / Adina Cabral MD Interpreting Provider: Adina Cabral MD Consult Discharge Plan - Plan Referrals: NONE,PCP [Primary Care Provider] - - Attending Attestation For this encounter, I have reviewed the DIETARY SERVICE AIDE or PA documentation, treatment plan, and medical decision making; and I have had face to face time with this patient. <Luis Daniel Prasad - Last Filed: 08/31/18 19:27> Date of Encounter: 08/31/18 Assessment and Plan (1) Cellulitis Current Visit: Yes Status: Acute Qualifiers: Site of cellulitis: extremity Site of cellulitis of extremity: lower extremity Laterality: right Qualified Code(s): L03.115 - Cellulitis of right lower limb Review of Systems All systems PM: The remainder of the systems were reviewed and are negative General Surgery Exam Initial Vital Signs Pulse Ox 100 08/24/18 16:51 Exam Initial Vital Signs Pulse Ox 100 08/24/18 16:51 Results - Labs 08/30/18 07:52 08/30/18 07:52 Abnormal lab results WBC 11.4 K/mcL (4.3-11.1) H 08/30/18 07:52 Plt Count 444 K/mcL (140-400) H 08/30/18 07:52 MPV 9.1 fL (9.4-12.4) L 08/30/18 07:52 Immature Gran % 11.3 % (0-4) H 08/28/18 01:53 Band Neutrophils % 6.0 % (0-4) H 08/29/18 09:10 Metamyelocytes % 3.0 % (0) H 08/30/18 07:52 Myelocytes % 1.0 % (0) H 08/30/18 07:52 Reactive Lymphocytes Present (Not Present) A 08/24/18 17:43 Platelet Estimate Slight increase (Normal) H 08/30/18 07:52 Polychromasia 1+ (Not Present) A 08/30/18 07:52 Potassium 3.4 mEq/L (3.5-5.1) L 08/27/18 02:19 Carbon Dioxide 30 mEq/L (23-29) H 08/29/18 09:10 Glucose 124 mg/dL (70-105) H 08/30/18 07:52 POC Glucose 169 mg/dL (70-99) H 08/30/18 12:15 Hemoglobin A1c 6.4 % (-5.6) H 08/31/18 07:52 Calculated Osmolality 301 (280-300) H 08/29/18 09:10 Calcium 8.1 mg/dL (8.6-10.3) L 08/28/18 01:53 Serum Total Protein 6.3 g/dL (6.4-8.9) L 08/24/18 17:43 Vancomycin Trough 15 mcg/mL (5-10) H 08/30/18 07:52 Diabetes panel 08/31/18 Range/Units 07:52 Hemoglobin A1c 6.4 H ( - 5.6) % All other labs normal. - Attending Attestation patient seen and examined. i have reviewed all labs, imaging, and notes. i have discussed the case with the DIETARY SERVICE AIDE in detail. I agree with the above assessment and plan and wish to add the following... 43F with cellulitis with unusual pattern of inflammation; concern for possible dermatological vs rheumatological etiology; punch biopsy was performed at [facility] IV abx will follow up pathology general surgery will cont to follow
[2018-08-31] MEDS: *HR* OxyCODONE Immed Rel 5 MG TABLET PO PRN (14:54)
[2018-08-31] MEDS: Nystatin Cream 15 GM TUBE TP SCH ×2 (16:03→21:52)
[2018-08-31] MEDS: ARIPiprazole 10 MG TABLET PO SCH (18:18)
[2018-08-31] MEDS ORDERED: Fluconazole 100 MG TABLET PO ONE (22:15)
[2018-09-01] MEDS: Piperacillin/Tazobactam 3.375 GM in 0.9 % Sodium Chloride Mini Bag 100 ML IVPB SCH ×4 (00:14→23:53)
[2018-09-01] MEDS: Acetaminophen 325 MG TABLET PO PRN ×2 (03:25→21:16)
[2018-09-01] MEDS: *HR* Heparin 5,000 UNIT/ML VIAL SQ SCH ×3 (05:42→21:17)
[2018-09-01 05:46] LABS: Hematocrit 37.8 % (35.3-44.9); Hemoglobin 12.4 g/dL (11.5-15.4); Mean Corpuscular HGB Conc 32.8 g/dL (31.6-35.5); Mean Corpuscular Hemoglobin 29.8 pg (28.0-33.3); Mean Corpuscular Volume 90.9 fL (83.0-100.0); Mean Platelet Volume 9.1 fL (9.4-12.4); Platelet Count 389 K/mcL (140-400); Red Blood Count 4.16 M/mcL (3.82-4.97); Red Cell Distribution Width 13.8 % (11.5-14.5); White Blood Count 10.2 K/mcL (4.3-11.1)
[2018-09-01 06:00] LABS: Alanine Aminotransferase 29 Units/L (7-52); Albumin 3.4 g/dL (3.5-5.7); Albumin/Globulin Ratio 1.1 (1.1-2.2); Alkaline Phosphatase 96 Units/L (34-104); Aspartate Amino Transferase 17 Units/L (13-39); BUN/Creatinine Ratio 11 (6-26); Bilirubin,Total 0.5 mg/dL (0.3-1.0); Blood Urea Nitrogen 8 mg/dL (6-20); Calcium 8.5 mg/dL (8.6-10.3); Carbon Dioxide 25 mEq/L (23-29); Chloride 105 mEq/L (98-107); Globulin 3.1 g/dL (2.4-3.5); Glucose 140 mg/dL (70-105); Magnesium 1.9 mg/dL (1.6-2.6); Osmolality,Calculated 285 (280-300); Phosphorous 3.9 mg/dL (2.7-4.5); Potassium 3.7 mEq/L (3.5-5.1); Sodium 137 mEq/L (136-145); Total Protein 6.5 g/dL (6.4-8.9); eGFR For African Americans > 60 (> 60); eGFR For Non-African Americans > 60 (> 60)
[2018-09-01] MEDS ORDERED: Aminoglycoside Consult 1 EACH MC ONE (07:36)
--- NOTE | 2018-09-01 08:04 | AcuteCareSurgery Progress Note ---
<Sheeba Orozco Nelly - Last Filed: 09/01/18 08:02> Date of Encounter: 09/01/18 Time of Encounter: 07:30 - Assessment and Plan (1) Cellulitis Current Visit: Yes Status: Acute s/p biopsies by Dr. Prasad. Pathology pending. Cellulitis is significantly improved. Recommend daily wound care to keep area clean and dry. ATBX/care per primary team. Daily wound Care: Remove dressings. Shower with antibacterial soap. Cover with nonadherent dressing or Adaptic. Wrap with kerlix and then tavo wrap or apply dry dressing and tape to secure (per patient preference). Follow-up in wound care with Dr. Prasad in 7-10 days. Surgery will sign off at this time. Thank you for allowing us to participate in Ms. Mcdowell's care. Qualifiers: Site of cellulitis: extremity Site of cellulitis of extremity: lower extremity Laterality: right Qualified Code(s): L03.115 - Cellulitis of right lower limb Subjective Patient reports: no new complaints, feels better, pain is less, afebrile Objective Vital Signs - Last 8 Hours Temp Pulse Resp BP Pulse Ox 09/01/18 07:23 97.9 F 75 16 132/82 95 09/01/18 03:22 100.5 F H 80 17 142/91 96 Intake and Output 08/31/18 09/01/18 09/01/18 23:59 07:59 15:59 Intake Total 460 / 1630 350 / 350 Output Total 400 / 400 400 / 400 Balance 60 / 1230 -50 / -50 Intake: IV Fluids 100 / 550 350 / 350 Zosyn 3.375 GM In 0.9 % Sodium 100 / 300 100 / 100 Chloride (Mini-Bag +) 100 ML @ 25 mls/hr IVPB Q8HR [facility] Rx#: [id number] Vancocin 1,250 MG In 0.9 % 250 / 250 Sodium Chloride 250 ML @ 166.67 mls/hr IVPB Q12H [facility] Rx#: [id number] Oral 360 / 1080 Output: Urine 400 / 400 400 / 400 Other: Meal Dinner Percent of Meal Consumed 25% # Voids 1 Weight 100.8 kg Blood Glucose* 155 132 Patient Weight 09/01/18 23:59 Weight 100.8 kg - General physical appearance well nourished, no distress - Neck Neck exam: trachea midline - Integumentary other (RLE cellulitis is significantly improved. There remains small amount of blisters noted that are unproved. There is a small amount of drive bloody drainage noted from the biopsy sites. There is no fluctuance, induration, or further concern for developing infection at this time.) - Labs 09/01/18 05:21 09/01/18 05:21 Diabetes panel 08/31/18 09/01/18 Range/Units 07:52 05:21 Sodium 137 (136-145) mEq/L Potassium 3.7 (3.5-5.1) mEq/L Chloride 105 (98-107) mEq/L Carbon Dioxide 25 (23-29) mEq/L BUN 8 (6-20) mg/dL Creatinine 0.70 (0.60-1.20) mg/dL Glucose 140 H (70-105) mg/dL Hemoglobin A1c 6.4 H ( - 5.6) % Calcium 8.5 L (8.6-10.3) mg/dL AST 17 (13-39) Units/L ALT 29 (7-52) Units/L Alkaline Phosphatase 96 (34-104) Units/L Albumin 3.4 L (3.5-5.7) g/dL Calcium panel 09/01/18 Range/Units 05:21 Calcium 8.5 L (8.6-10.3) mg/dL Phosphorus 3.9 (2.7-4.5) mg/dL Albumin 3.4 L (3.5-5.7) g/dL Pituitary panel 09/01/18 Range/Units 05:21 Sodium 137 (136-145) mEq/L Potassium 3.7 (3.5-5.1) mEq/L Chloride 105 (98-107) mEq/L Carbon Dioxide 25 (23-29) mEq/L BUN 8 (6-20) mg/dL Creatinine 0.70 (0.60-1.20) mg/dL Glucose 140 H (70-105) mg/dL Calcium 8.5 L (8.6-10.3) mg/dL Adrenal panel 09/01/18 Range/Units 05:21 Sodium 137 (136-145) mEq/L Potassium 3.7 (3.5-5.1) mEq/L Chloride 105 (98-107) mEq/L Carbon Dioxide 25 (23-29) mEq/L BUN 8 (6-20) mg/dL Creatinine 0.70 (0.60-1.20) mg/dL Glucose 140 H (70-105) mg/dL Calcium 8.5 L (8.6-10.3) mg/dL Total Bilirubin 0.5 (0.3-1.0) mg/dL AST 17 (13-39) Units/L ALT 29 (7-52) Units/L Alkaline Phosphatase 96 (34-104) Units/L Albumin 3.4 L (3.5-5.7) g/dL Consult Discharge Plan - Plan Additional Instructions: Daily wound Care: Remove dressings. Shower with antibacterial soap. Cover with nonadherent dressing or Adaptic. Wrap with kerlix and then tavo wrap or apply dry dressing and tape to secure (per patient preference). Referrals: NONE,PCP [Primary Care Provider] - Luis Daniel Prasad MD [Non-Partnered Physician] - (In wound care) <Juan Carlos Corona - Last Filed: 09/01/18 08:20> Date of Encounter: 09/01/18 Objective Vital Signs - Last 8 Hours Temp Pulse Resp BP Pulse Ox 09/01/18 07:23 97.9 F 75 16 132/82 95 09/01/18 03:22 100.5 F H 80 17 142/91 96 Intake and Output 08/31/18 09/01/18 09/01/18 23:59 07:59 15:59 Intake Total 460 / 1630 350 / 350 Output Total 400 / 400 400 / 400 Balance 60 / 1230 -50 / -50 Intake: IV Fluids 100 / 550 350 / 350 Zosyn 3.375 GM In 0.9 % Sodium 100 / 300 100 / 100 Chloride (Mini-Bag +) 100 ML @ 25 mls/hr IVPB Q8HR [facility] Rx#: [id number] Vancocin 1,250 MG In 0.9 % 250 / 250 Sodium Chloride 250 ML @ 166.67 mls/hr IVPB Q12H [facility] Rx#: [id number] Oral 360 / 1080 Output: Urine 400 / 400 400 / 400 Other: Meal Dinner Percent of Meal Consumed 25% # Voids 1 Weight 100.8 kg Blood Glucose* 155 132 Patient Weight 09/01/18 23:59 Weight 100.8 kg - Labs 09/01/18 05:21 09/01/18 05:21 Diabetes panel 08/31/18 09/01/18 Range/Units 07:52 05:21 Sodium 137 (136-145) mEq/L Potassium 3.7 (3.5-5.1) mEq/L Chloride 105 (98-107) mEq/L Carbon Dioxide 25 (23-29) mEq/L BUN 8 (6-20) mg/dL Creatinine 0.70 (0.60-1.20) mg/dL Glucose 140 H (70-105) mg/dL Hemoglobin A1c 6.4 H ( - 5.6) % Calcium 8.5 L (8.6-10.3) mg/dL AST 17 (13-39) Units/L ALT 29 (7-52) Units/L Alkaline Phosphatase 96 (34-104) Units/L Albumin 3.4 L (3.5-5.7) g/dL Calcium panel 09/01/18 Range/Units 05:21 Calcium 8.5 L (8.6-10.3) mg/dL Phosphorus 3.9 (2.7-4.5) mg/dL Albumin 3.4 L (3.5-5.7) g/dL Pituitary panel 09/01/18 Range/Units 05:21 Sodium 137 (136-145) mEq/L Potassium 3.7 (3.5-5.1) mEq/L Chloride 105 (98-107) mEq/L Carbon Dioxide 25 (23-29) mEq/L BUN 8 (6-20) mg/dL Creatinine 0.70 (0.60-1.20) mg/dL Glucose 140 H (70-105) mg/dL Calcium 8.5 L (8.6-10.3) mg/dL Adrenal panel 09/01/18 Range/Units 05:21 Sodium 137 (136-145) mEq/L Potassium 3.7 (3.5-5.1) mEq/L Chloride 105 (98-107) mEq/L Carbon Dioxide 25 (23-29) mEq/L BUN 8 (6-20) mg/dL Creatinine 0.70 (0.60-1.20) mg/dL Glucose 140 H (70-105) mg/dL Calcium 8.5 L (8.6-10.3) mg/dL Total Bilirubin 0.5 (0.3-1.0) mg/dL AST 17 (13-39) Units/L ALT 29 (7-52) Units/L Alkaline Phosphatase 96 (34-104) Units/L Albumin 3.4 L (3.5-5.7) g/dL - Attending Attestation I examined this patient and my medical decision-making was reviewed with the [facility] [employer]. I agree with the documented findings, disposition and treatment plan as described to the extent set forth below. Pt condition is satisfactory for DC home per the discretion of primary service. RLE cellulitis responded to IV abx and recommend continuation with PO abx at home. Pt to f/u in wound care and with PCP for bx results which will help determine if any additional treatment is warranted. Routine wound care. Suture removal in wound care clinic.
[2018-09-01] MEDS: Budesonide/Formoterol 160/4.5 1 PUFF INH IH SCH ×2 (08:09→20:35)
[2018-09-01] MEDS: Loratadine 10 MG TABLET PO SCH (08:24)
[2018-09-01] MEDS: Famotidine 20 MG TABLET PO SCH ×2 (08:24→21:17)
[2018-09-01] MEDS: Multivit/Ca/Min/Fe/FA 1 TAB TABLET PO SCH (08:24)
[2018-09-01] MEDS: Furosemide 20 MG TABLET PO SCH (08:24)
[2018-09-01] MEDS: *HR* HYDROcodone/Acet 5/325 mg TABLET PO PRN ×2 (08:25→15:04)
[2018-09-01] MEDS: Lactobacillus 1 EACH CAP.SPRINK PO SCH ×2 (08:25→21:17)
[2018-09-01] MEDS: Vitamin E 200 UNIT (90MG) CAPSULE PO SCH (08:25)
[2018-09-01] MEDS: Cholecalciferol (D-3) 1,000 UNIT (25MCG) TABLET PO SCH (08:25)
[2018-09-01] MEDS: Nicotine 21 MG PATCH.TD24 TD SCH (08:26)
--- NOTE | 2018-09-01 08:26 | Internal Med Progress Note ---
Hospitalist Progress Note - Encounter Date of Encounter: 09/01/18 Time of Encounter: 08:23 - Subjective Interval History: the patient was seen and examined at bedside blistering lesion of left leg get dry up order wound care spiked fever , i did order another set of blood culture underwent skin biopsy yesterday - Exam Vitals: Temp Pulse Resp BP Pulse Ox 97.9 F 75 16 132/82 95 09/01/18 07:23 09/01/18 07:23 09/01/18 07:23 09/01/18 07:23 09/01/18 07:23 Exam: GEN: NAD, A&O x 3, Pleasant and conversant SKIN: [place] warm acyanotic not jaundice HEART: RRR, no murmurs LUNGS: CTA no wheeze or crackles, overall non labored ABDOMEN; Soft, non tender or distended, BS x 4 normactive EXT: Right LE diffuse edema, tenderness and blistering skin lesion on erythema base Pedal pulses 1+, radial pulses 2+ PSYCH: Mood and affect is appropriate DVT Prophylaxis: Heparin - Summary of Assessment and Plan Summary of Assessment and Plan: (1) Soft tissue infection with cellulitis versus skin disorder Current Visit: Yes Status: Acute Assessment and Plan: still has right LE edema with tenderness causative organism unclear CT of the RLE 08/24/18 Mild subcutaneous fat stranding of the right thigh and moderate subcutaneous fat stranding in the right leg compatible with cellulitis. No drainable fluid collection. Skin blistering along the posteromedial aspect of the right calf. Swab culture of the wound negative. Patient has been on vancomycin/zosyn since 08/24 with no improvement. Patient's significant other states it is looking worse. Repeat wound culture is no growth. MRI of the RLE show Skin ulceration posterior to the medial femoral condyle extends 14 mm deep into the subcutaneous fat, without invasion of the sub adjacent medial head of the gastrocnemius. with Severe circumferential edema of the subcutaneous fat of the entire right lower leg, right ankle and visualized right foot, worsened since prior CT. No drainable soft tissue abscess. Currently on Vanc and Zosyn. consult surgery, s/p skin biopsy order venous doppler, still pending order wou d care (3) Sepsis Current Visit: Yes Status: Acute Assessment and Plan: Resolved blood culture negative so far on Zosyn and vancomycin spiked low grade fever today 100.5 F order another blood culture leukocytsis resolved (4) Diabetes Current Visit: Yes Status: Acute Assessment and Plan: glycemic control is important , could be pyodrma gangrenousum? point of care glucose 124 - 180 continue short acting insulin and basal coverage. Glycermic control needed for proper wound healing. check A1c (5) GERD (gastroesophageal reflux disease) Current Visit: Yes Status: Acute Assessment and Plan: Stable chronic switch PPI to H2 monica due to increased risk for C. difficile colitis (6) DVT prophylaxis Current Visit: Yes Status: Acute Assessment and Plan: Heparin subcutaneously (7) Tobacco abuse Current Visit: Yes Status: Acute Assessment and Plan: encouraged tobacco cessation (8) Morbid obesity Current Visit: Yes Status: Acute Assessment and Plan: Continue to encourage lifestyle modification diet and exercise diarrhea : resolved C diff tested on 08/25 and is negative. - Time Spent with Patient Total time spent is greater than 50% in coordination of care (as documented) at patient's floor/unit and/or counseling patient: Internal Medicine: Result - Labs CBC & Chem 7: 09/01/18 05:21 09/01/18 05:21 Labs: Short CBC 09/01/18 Range/Units 05:21 WBC 10.2 (4.3-11.1) K/mcL Hgb 12.4 (11.5-15.4) g/dL Hct 37.8 (35.3-44.9) % Plt Count 389 (140-400) K/mcL BMP 09/01/18 05:21 Sodium 137 Potassium 3.7 Chloride 105 Carbon Dioxide 25 BUN 8 Creatinine 0.70 Glucose 140 H Calcium 8.5 L Liver Function 09/01/18 Range/Units 05:21 Total Bilirubin 0.5 (0.3-1.0) mg/dL AST 17 (13-39) Units/L ALT 29 (7-52) Units/L Alkaline Phosphatase 96 (34-104) Units/L Albumin 3.4 L (3.5-5.7) g/dL - ABG Interpretation ABG results: PT/INR, D-dimer PT 11.4 Seconds (9.4-12.1) 08/24/18 17:43 Consult Discharge Plan - Plan Additional Instructions: Daily wound Care: Remove dressings. Shower with antibacterial soap. Cover with nonadherent dressing or Adaptic. Wrap with kerlix and then tavo wrap or apply dry dressing and tape to secure (per patient preference). Referrals: Luis Daniel Prasad MD [Non-Partnered Physician] - (In wound care) NONE,PCP [Primary Care Provider] -
[2018-09-01] MEDS: Insulin LISPRO 300 UNITS/3 ML VIAL SQ SCH ×4 (08:32→21:07)
[2018-09-01] MEDS: Fluticasone Propionate Nasal 50 MCG/SPRAY BOTTLE NS SCH ×2 (13:03→21:16)
[2018-09-01] MEDS: Insulin DETEMIR 100 UNIT/ML X5UNITS SQ SCH (13:03)
[2018-09-01] MEDS: Nystatin Cream 15 GM TUBE TP SCH ×2 (13:04→21:15)
[2018-09-01] MEDS: ARIPiprazole 10 MG TABLET PO SCH (18:44)
[2018-09-01] MEDS ORDERED: Ibuprofen 600 MG TABLET PO ONE (22:38)
[2018-09-02] MEDS: *HR* Heparin 5,000 UNIT/ML VIAL SQ SCH ×3 (05:53→20:31)
[2018-09-02] MEDS: *HR* HYDROcodone/Acet 5/325 mg TABLET PO PRN ×2 (05:57→13:24)
[2018-09-02 06:05] LABS: Hematocrit 40.5 % (35.3-44.9); Hemoglobin 13.2 g/dL (11.5-15.4); Mean Corpuscular HGB Conc 32.6 g/dL (31.6-35.5); Mean Corpuscular Hemoglobin 29.5 pg (28.0-33.3); Mean Corpuscular Volume 90.6 fL (83.0-100.0); Mean Platelet Volume 9.2 fL (9.4-12.4); Platelet Count 353 K/mcL (140-400); Red Blood Count 4.47 M/mcL (3.82-4.97); White Blood Count 8.6 K/mcL (4.3-11.1)
[2018-09-02 06:24] LABS: Alanine Aminotransferase 35 Units/L (7-52); Albumin 3.5 g/dL (3.5-5.7); Albumin/Globulin Ratio 1.1 (1.1-2.2); Alkaline Phosphatase 111 Units/L (34-104); Aspartate Amino Transferase 29 Units/L (13-39); BUN/Creatinine Ratio 14 (6-26); Bilirubin,Total 0.5 mg/dL (0.3-1.0); Blood Urea Nitrogen 10 mg/dL (6-20); Carbon Dioxide 27 mEq/L (23-29); Chloride 100 mEq/L (98-107); Globulin 3.3 g/dL (2.4-3.5); Glucose 137 mg/dL (70-105); Osmolality,Calculated 289 (280-300); Phosphorous 4.4 mg/dL (2.7-4.5); Potassium 3.4 mEq/L (3.5-5.1); Sodium 139 mEq/L (136-145); Total Protein 6.8 g/dL (6.4-8.9); eGFR For African Americans > 60 (> 60); eGFR For Non-African Americans > 60 (> 60)
[2018-09-02] MEDS: Budesonide/Formoterol 160/4.5 1 PUFF INH IH SCH ×2 (07:08→22:12)
[2018-09-02] MEDS: Piperacillin/Tazobactam 3.375 GM in 0.9 % Sodium Chloride Mini Bag 100 ML IVPB SCH (08:46)
[2018-09-02] MEDS: Fluticasone Propionate Nasal 50 MCG/SPRAY BOTTLE NS SCH ×2 (08:46→20:37)
[2018-09-02] MEDS: Insulin DETEMIR 100 UNIT/ML X5UNITS SQ SCH (08:52)
[2018-09-02] MEDS: Nystatin Cream 15 GM TUBE TP SCH ×2 (08:52→23:29)
[2018-09-02] MEDS: Insulin LISPRO 300 UNITS/3 ML VIAL SQ SCH ×4 (08:53→20:39)
[2018-09-02] MEDS: Vitamin E 200 UNIT (90MG) CAPSULE PO SCH (08:54)
[2018-09-02] MEDS: Famotidine 20 MG TABLET PO SCH ×2 (08:55→20:30)
[2018-09-02] MEDS: Cholecalciferol (D-3) 1,000 UNIT (25MCG) TABLET PO SCH (08:55)
[2018-09-02] MEDS: Nicotine 21 MG PATCH.TD24 TD SCH (08:55)
[2018-09-02] MEDS: Loratadine 10 MG TABLET PO SCH (08:55)
[2018-09-02] MEDS: Lactobacillus 1 EACH CAP.SPRINK PO SCH ×2 (08:56→20:31)
[2018-09-02] MEDS: Furosemide 20 MG TABLET PO SCH (08:56)
[2018-09-02] MEDS: Multivit/Ca/Min/Fe/FA 1 TAB TABLET PO SCH (08:56)
--- NOTE | 2018-09-02 09:39 | Internal Med Progress Note ---
Hospitalist Progress Note - Encounter Date of Encounter: 09/02/18 Time of Encounter: 09:37 - Subjective Interval History: the patient was seen and examined at bedside. still spiked fever 101 last night , BP stable no leukocytosis , BC negative so far also developed generalized maculopapular skin rash involving trunk and extremities, could be red man sysndrome, d/c vancomycin and switch to Po doxycyclin no dairrhea , no SOB or chest wheezing no N or V - Exam Vitals: Temp Pulse Resp BP Pulse Ox 98.3 F 64 18 125/73 95 09/02/18 07:39 09/02/18 07:39 09/02/18 07:39 09/02/18 07:39 09/02/18 07:39 Exam: GEN: NAD, A&O x 3, Pleasant and conversant SKIN: [place] warm acyanotic not jaundice, maculopapular rash in trunck and UE and LE HEART: RRR, no murmurs LUNGS: CTA no wheeze or crackles, overall non labored ABDOMEN; Soft, non tender or distended, BS x 4 normactive EXT: Right LE diffuse edema, tenderness and blistering skin lesion on erythema base Pedal pulses 1+, radial pulses 2+ PSYCH: Mood and affect is appropriate DVT Prophylaxis: Heparin - Summary of Assessment and Plan Summary of Assessment and Plan: (1) Soft tissue infection with cellulitis versus skin disorder Current Visit: Yes Status: Acute Assessment and Plan: still has right LE edema with tenderness causative organism unclear CT of the RLE 08/24/18 Mild subcutaneous fat stranding of the right thigh and moderate subcutaneous fat stranding in the right leg compatible with cellulitis. No drainable fluid collection. Skin blistering along the posteromedial aspect of the right calf. Swab culture of the wound negative. Patient has been on vancomycin/zosyn since 08/24 with little improvement. blistering lesion start drying and crustation still spiked fever but no leukocytosis , BC negative, BP stable also develop maculopapular skin rash mainly over trucnk and extremities, could be red man syndrome d/c vacnomycin and start on PO doxyxyclin 100 mg bid MRI of the RLE show Skin ulceration posterior to the medial femoral condyle extends 14 mm deep into the subcutaneous fat, without invasion of the sub adjacent medial head of the gastrocnemius. with Severe circumferential edema of the subcutaneous fat of the entire right lower leg, right ankle and visualized right foot, worsened since prior CT. No drainable soft tissue abscess. continue on iv zosyn consult surgery, s/p skin biopsy order venous doppler negative on wound care ID on board (3) fever Current Visit: Yes Status: Acute Assessment and Plan: i suspect drug rash reaction to vancomycin especially with appearance of skin rash ( red man syndrome) d/c vancomycin start on bendryl 25 mg q6h prn rash is not itchy BC negative so far no leukocytosis patient not toxic (4) Diabetes Current Visit: Yes Status: Acute Assessment and Plan: glycemic control is important , could be pyodrma gangrenousum? point of care glucose 124 - 180 continue short acting insulin and basal coverage. Glycermic control needed for proper wound healing. check A1c (5) GERD (gastroesophageal reflux disease) Current Visit: Yes Status: Acute Assessment and Plan: Stable chronic switch PPI to H2 monica due to increased risk for C. difficile colitis (6) DVT prophylaxis Current Visit: Yes Status: Acute Assessment and Plan: Heparin subcutaneously (7) Tobacco abuse Current Visit: Yes Status: Acute Assessment and Plan: encouraged tobacco cessation (8) Morbid obesity Current Visit: Yes Status: Acute Assessment and Plan: Continue to encourage lifestyle modification diet and exercise diarrhea : resolved C diff tested on 08/25 and is negative. - Time Spent with Patient Total time spent is greater than 50% in coordination of care (as documented) at patient's floor/unit and/or counseling patient: Internal Medicine: Result - Labs CBC & Chem 7: 09/02/18 05:37 09/02/18 05:37 Labs: Short CBC 09/02/18 Range/Units 05:37 WBC 8.6 (4.3-11.1) K/mcL Hgb 13.2 (11.5-15.4) g/dL Hct 40.5 (35.3-44.9) % Plt Count 353 (140-400) K/mcL BMP 09/02/18 05:37 Sodium 139 Potassium 3.4 L Chloride 100 Carbon Dioxide 27 BUN 10 Creatinine 0.74 Glucose 137 H Calcium 9.0 Liver Function 09/02/18 Range/Units 05:37 Total Bilirubin 0.5 (0.3-1.0) mg/dL AST 29 (13-39) Units/L ALT 35 (7-52) Units/L Alkaline Phosphatase 111 H (34-104) Units/L Albumin 3.5 (3.5-5.7) g/dL - ABG Interpretation ABG results: PT/INR, D-dimer PT 11.4 Seconds (9.4-12.1) 08/24/18 17:43 Consult Discharge Plan - Plan Additional Instructions: Daily wound Care: Remove dressings. Shower with antibacterial soap. Cover with nonadherent dressing or Adaptic. Wrap with kerlix and then tavo wrap or apply dry dressing and tape to secure (per patient preference). Referrals: Luis Daniel Prasad MD [Non-Partnered Physician] - 09/13/18 1:30 pm (In wound care) Ty Gilbert MD [Non-Partnered Physician] - 09/07/18 8:45 am
[2018-09-02] MEDS: Doxycycline 100 MG CAPSULE PO SCH ×2 (10:42→20:30)
--- NOTE | 2018-09-02 13:40 | Infectious Disease Progress No ---
ID Progress Note Date of Encounter: 09/02/18 Time of Encounter: 13:37 - Subjective Subjective: Re-evaluation of the patient requested by the primary team due to the patient developing new rash and fevers. Patient seen and examined. No acute events noted overnight. Patient states o verall she feels better but continues to have a significant amount of pain in her right leg with ambulation or weight-bearing. Reports fever with sweating overnight. Denies chest pain, shortness of breath, or cough. Denies nausea, vomiting, diarrhea, or abdominal pain. States stools are loose. Denies oral thrush. States her appetite is good. States rash is not painful or itchy. - Objective CBC & Chem 7: 09/02/18 05:37 09/02/18 05:37 - Exam Vitals: Temp Pulse Resp BP Pulse Ox 98.4 F 69 18 130/81 96 09/02/18 11:23 09/02/18 11:23 09/02/18 11:23 09/02/18 11:23 09/02/18 11:23 Exam: Head: Atraumatic, normal inspection, normocephalic. Eye: EOMI, PERRLA, no scleral icterus noted. ENT: Mucous membranes moist. No odontogenic infection noted. Neck: Normal inspection, no meningismus. Respiratory: Clear to auscultation. No rales, respiratory distress, rhonchi, or wheezes noted. Cardiovascular: Regular rate and rhythm, S1 and S2 audible. No murmurs, rubs, or gallops. GI: Soft, nondistended, normal bowel sounds. Extremities: LLE dressing C/D/I. Neurological: Alert, oriented 3, no focal deficits. Psychiatric: normal affect, normal mood. Skin: Dry, intact, warm. Normal color. Flat, erythematous macular rash noted to the BLE and BUE. - Assessment and Plan (1) Sepsis Current Visit: Yes Status: Acute Noted at OSH. Likely secondary to RLE infection. Resolved initially, but re-developed fevers. WBC remains normal. Blood cultures drawn 08/24/18 are negative x 2 sets. Repeat blood cultures drawn 09/01/18 are NGTD x 2 sets. Consider non-infectious etiologies of fevers: autoimmune vs. drug-related vs. other. Qualifiers: Sepsis type: sepsis due to unspecified organism Qualified Code(s): A41.9 - Sepsis, unspecified organism SNOMED Code(s): 88757009 (2) Cellulitis Current Visit: Yes Status: Acute Location: RLE. Causative organism: Unclear. CT of the RLE 08/24/18 Mild subcutaneous fat stranding of the right thigh and moderate subcutaneous fat stranding in the right leg compatible with cellulitis. No drainable fluid collection. Skin blistering along the posteromedial aspect of the right calf. Swab culture of the wound negative. Patient has been on vancomycin/zosyn since 08/24 with minimal improvement. Repeat wound culture is no growth. MRI of the RLE non-revealing. Not sure if this is truly cellulitis vs. something else. Currently on Vanc and Zosyn. Qualifiers: Site of cellulitis: extremity Site of cellulitis of extremity: lower extremity Laterality: right Qualified Code(s): L03.115 - Cellulitis of right lower limb SNOMED Code(s): 636634750 (3) Diarrhea Current Visit: Yes Status: Acute Likely secondary to antibiotics. Improved. States more formed and less frequent. C diff tested on 08/25 and is negative. Supportive care per the primary team. Probiotics daily. Qualifiers: Diarrhea type: unspecified type Qualified Code(s): R19.7 - Diarrhea, unspecified SNOMED Code(s): 69457064 (4) Diabetes Current Visit: Yes Status: Acute Recommend aggressive glucose monitoring and control to promote wound healing and prevent re-infection. Management per the primary team. Qualifiers: Diabetes mellitus type: type 2 Diabetes mellitus halfway insulin use: without halfway use Diabetes mellitus complication status: without complication Qualified Code(s): E11.9 - Type 2 diabetes mellitus without complications SNOMED Code(s): 98212342 (5) GERD (gastroesophageal reflux disease) Current Visit: Yes Status: Acute Qualifiers: Esophagitis presence: without esophagitis Qualified Code(s): K21.9 - Gastro-esophageal reflux disease without esophagitis SNOMED Code(s): 196844128 (6) Tobacco abuse Current Visit: Yes Status: Acute SNOMED Code(s): 971838823 (7) Morbid obesity Current Visit: Yes Status: Acute SNOMED Code(s): 215042656 - Recommendations Recommendations: Check ESR, CRP, DEONNA, and procalcitonin. Await skin biopsy results. Consider dermatology to evaluate. Discontinue Vanc and Zosyn. Start doxycycline 100mg PO BID. Start levaquin 750mg PO daily. Duration of treatment depends on the clinical picture. Monitor renal function and for drug toxicity and dose-adjust antibiotics. If fevers and rash persist without identified etiology, consider transfer to tertiary care center for second opinion. Consult Discharge Plan - Plan Additional Instructions: Daily wound Care: Remove dressings. Shower with antibacterial soap. Cover with nonadherent dressing or Adaptic. Wrap with kerlix and then tavo wrap or apply dry dressing and tape to secure (per patient preference). Referrals: Luis Daniel Prasad MD [Non-Partnered Physician] - 09/13/18 1:30 pm (In wound care) Ty Gilbert MD [Non-Partnered Physician] - 09/07/18 8:45 am
[2018-09-02] MEDS: levoFLOXacin 750 MG TABLET PO SCH (14:47)
[2018-09-02] MEDS: ARIPiprazole 10 MG TABLET PO SCH (17:09)
[2018-09-02] MEDS: Melatonin 3 MG TABLET PO PRN (22:03)
[2018-09-03] MEDS: *HR* HYDROcodone/Acet 5/325 mg TABLET PO PRN ×3 (01:29→20:27)
[2018-09-03 05:19] LABS: Hemoglobin 13.2 g/dL (11.5-15.4); Mean Corpuscular Hemoglobin 29.7 pg (28.0-33.3); Mean Corpuscular Volume 90.1 fL (83.0-100.0); Mean Platelet Volume 9.5 fL (9.4-12.4); Platelet Count 312 K/mcL (140-400); Red Blood Count 4.44 M/mcL (3.82-4.97); Red Cell Distribution Width 13.8 % (11.5-14.5); White Blood Count 7.4 K/mcL (4.3-11.1)
[2018-09-03] MEDS: *HR* Heparin 5,000 UNIT/ML VIAL SQ SCH ×3 (05:25→20:18)
[2018-09-03 05:32] LABS: Alanine Aminotransferase 38 Units/L (7-52); Albumin 3.5 g/dL (3.5-5.7); Alkaline Phosphatase 106 Units/L (34-104); Aspartate Amino Transferase 26 Units/L (13-39); BUN/Creatinine Ratio 16 (6-26); Bilirubin,Total 0.4 mg/dL (0.3-1.0); Blood Urea Nitrogen 12 mg/dL (6-20); Carbon Dioxide 26 mEq/L (23-29); Chloride 100 mEq/L (98-107); Globulin 3.6 g/dL (2.4-3.5); Glucose 242 mg/dL (70-105); Magnesium 1.9 mg/dL (1.6-2.6); Osmolality,Calculated 286 (280-300); Potassium 3.7 mEq/L (3.5-5.1); Sodium 134 mEq/L (136-145); Total Protein 7.1 g/dL (6.4-8.9); eGFR For African Americans > 60 (> 60); eGFR For Non-African Americans > 60 (> 60)
[2018-09-03] MEDS: Budesonide/Formoterol 160/4.5 1 PUFF INH IH SCH ×2 (07:50→20:04)
[2018-09-03] MEDS: Vitamin E 200 UNIT (90MG) CAPSULE PO SCH (08:11)
[2018-09-03] MEDS: Loratadine 10 MG TABLET PO SCH (08:12)
[2018-09-03] MEDS: Multivit/Ca/Min/Fe/FA 1 TAB TABLET PO SCH (08:12)
[2018-09-03] MEDS: Cholecalciferol (D-3) 1,000 UNIT (25MCG) TABLET PO SCH (08:12)
[2018-09-03] MEDS: Furosemide 20 MG TABLET PO SCH (08:12)
[2018-09-03] MEDS: Famotidine 20 MG TABLET PO SCH ×2 (08:12→20:17)
[2018-09-03] MEDS: Insulin LISPRO 300 UNITS/3 ML VIAL SQ SCH ×4 (08:12→20:24)
[2018-09-03] MEDS: Lactobacillus 1 EACH CAP.SPRINK PO SCH ×2 (08:12→20:17)
[2018-09-03] MEDS: Doxycycline 100 MG CAPSULE PO SCH ×2 (08:12→20:17)
[2018-09-03] MEDS: levoFLOXacin 750 MG TABLET PO SCH (08:12)
[2018-09-03] MEDS: Fluticasone Propionate Nasal 50 MCG/SPRAY BOTTLE NS SCH ×2 (08:14→20:18)
[2018-09-03] MEDS: Nicotine 21 MG PATCH.TD24 TD SCH (08:14)
[2018-09-03] MEDS: Insulin DETEMIR 100 UNIT/ML X5UNITS SQ SCH (08:24)
--- NOTE | 2018-09-03 09:19 | Internal Med Progress Note ---
Hospitalist Progress Note - Encounter Date of Encounter: 09/03/18 Time of Encounter: 09:15 - Subjective Interval History: the patient was seen and examined at bedside. feel better, no fever last 24 hours skin rash is better no diarrhea, no cough, nausea or vomiting station mechanic helper consulted to r/o possibility of vasculitis - Exam Vitals: Temp Pulse Resp BP Pulse Ox 97.5 F L 66 16 113/78 90 09/03/18 07:07 09/03/18 07:07 09/03/18 07:50 09/03/18 07:07 09/03/18 07:50 Exam: GEN: NAD, A&O x 3, Pleasant and conversant SKIN: [place] warm acyanotic not jaundice, maculopapular rash in trunck and UE and LE HEART: RRR, no murmurs LUNGS: CTA no wheeze or crackles, overall non labored ABDOMEN; Soft, non tender or distended, BS x 4 normactive EXT: Right LE diffuse edema, tenderness and blistering skin lesion on erythema base Pedal pulses 1+, radial pulses 2+ PSYCH: Mood and affect is appropriate DVT Prophylaxis: Heparin - Summary of Assessment and Plan Summary of Assessment and Plan: (1) Soft tissue infection with cellulitis versus skin disorder Current Visit: Yes Status: Acute Assessment and Plan: still has right LE edema with tenderness causative organism unclear CT of the RLE 08/24/18 Mild subcutaneous fat stranding of the right thigh and moderate subcutaneous fat stranding in the right leg compatible with cellulitis. No drainable fluid collection. Skin blistering along the posteromedial aspect of the right calf. Swab culture of the wound negative. Patient has been on vancomycin/zosyn since 08/24 with little improvement. blistering lesion start drying and crustation still spiked fever but no leukocytosis , BC negative, BP stable also develop maculopapular skin rash mainly over trucnk and extremities, could be red man syndrome d/c vacnomycin and zosyn and start on PO doxyxyclin 100 mg bid and levofloxacin 750 mg daily MRI of the RLE show Skin ulceration posterior to the medial femoral condyle extends 14 mm deep into the subcutaneous fat, without invasion of the sub adjacent medial head of the gastrocnemius. with Severe circumferential edema of the subcutaneous fat of the entire right lower leg, right ankle and visualized right foot, worsened since prior CT. No drainable soft tissue abscess s/p skin biopsy , result still pending order venous doppler negative on wound care ID on board did consult station mechanic helper (3) fever Current Visit: Yes Status: Acute Assessment and Plan: i suspect drug rash reaction 2/2 vancomycin especially with appearance of skin rash ( red man syndrome) versus autoimmune disease d/c vancomycin start on bendryl 25 mg q6h prn rash is not itchy, getting better on supportive Rx BC negative so far no leukocytosis patient not toxic no wheezing no dysphagia (4) Diabetes Current Visit: Yes Status: Acute Assessment and Plan: glycemic control is important point of care glucose 124 - 180 continue short acting insulin and basal coverage. Glycermic control needed for proper wound healing. A1c 6.4 (5) GERD (gastroesophageal reflux disease) Current Visit: Yes Status: Acute Assessment and Plan: Stable chronic switch PPI to H2 monica due to increased risk for C. difficile colitis (6) DVT prophylaxis Current Visit: Yes Status: Acute Assessment and Plan: Heparin subcutaneously (7) Tobacco abuse Current Visit: Yes Status: Acute Assessment and Plan: encouraged tobacco cessation (8) Morbid obesity Current Visit: Yes Status: Acute Assessment and Plan: Continue to encourage lifestyle modification diet and exercise diarrhea : resolved C diff tested on 08/25 and is negative. - Time Spent with Patient Total time spent is greater than 50% in coordination of care (as documented) at patient's floor/unit and/or counseling patient: Internal Medicine: Result - Labs CBC & Chem 7: 09/03/18 04:42 09/03/18 04:42 Labs: Short CBC 09/03/18 Range/Units 04:42 WBC 7.4 (4.3-11.1) K/mcL Hgb 13.2 (11.5-15.4) g/dL Hct 40.0 (35.3-44.9) % Plt Count 312 (140-400) K/mcL BMP 09/03/18 04:42 Sodium 134 L Potassium 3.7 Chloride 100 Carbon Dioxide 26 BUN 12 Creatinine 0.77 Glucose 242 H Calcium 9.0 Liver Function 09/03/18 Range/Units 04:42 Total Bilirubin 0.4 (0.3-1.0) mg/dL AST 26 (13-39) Units/L ALT 38 (7-52) Units/L Alkaline Phosphatase 106 H (34-104) Units/L Albumin 3.5 (3.5-5.7) g/dL - ABG Interpretation ABG results: PT/INR, D-dimer PT 11.4 Seconds (9.4-12.1) 08/24/18 17:43 Consult Discharge Plan - Plan Additional Instructions: Daily wound Care: Remove dressings. Shower with antibacterial soap. Cover with nonadherent dressing or Adaptic. Wrap with kerlix and then tavo wrap or apply dry dressing and tape to secure (per patient preference). Referrals: Luis Daniel Prasad MD [Non-Partnered Physician] - 09/13/18 1:30 pm (In wound care) Ty Gilbert MD [Non-Partnered Physician] - 09/07/18 8:45 am
[2018-09-03] MEDS: ARIPiprazole 10 MG TABLET PO SCH (17:03)
[2018-09-03] MEDS: Nystatin Cream 15 GM TUBE TP SCH ×2 (17:06→20:20)
[2018-09-03] MEDS: Melatonin 3 MG TABLET PO PRN (22:28)
[2018-09-04 02:51] LABS: Basophils # 0.1 K/mcL (0.0-0.2); Eosinophils # 0.1 K/mcL (0.0-0.6); Eosinophils % 1.9 %; Hemoglobin 13.4 g/dL (11.5-15.4); Immature Granulocytes % 1.5 % (0-4); Lymphocytes # 2.8 K/mcL (0.6-4.6); Lymphocytes % 40.8 %; Mean Corpuscular HGB Conc 32.7 g/dL (31.6-35.5); Mean Corpuscular Hemoglobin 29.6 pg (28.0-33.3); Mean Corpuscular Volume 90.7 fL (83.0-100.0); Mean Platelet Volume 9.1 fL (9.4-12.4); Monocytes # 0.6 K/mcL (0.0-1.3); Monocytes % 8.4 %; Neutrophils # 3.2 K/mcL (1.6-8.9); Platelet Count 341 K/mcL (140-400); Red Blood Count 4.52 M/mcL (3.82-4.97); Red Cell Distribution Width 13.6 % (11.5-14.5); Segmented Neutrophils % 46.4 %; White Blood Count 6.9 K/mcL (4.3-11.1)
[2018-09-04 03:08] LABS: Alanine Aminotransferase 35 Units/L (7-52); Albumin 3.7 g/dL (3.5-5.7); Alkaline Phosphatase 102 Units/L (34-104); Aspartate Amino Transferase 23 Units/L (13-39); BUN/Creatinine Ratio 20 (6-26); Bilirubin,Total 0.4 mg/dL (0.3-1.0); Blood Urea Nitrogen 16 mg/dL (6-20); Calcium 9.3 mg/dL (8.6-10.3); Carbon Dioxide 25 mEq/L (23-29); Chloride 102 mEq/L (98-107); Globulin 3.6 g/dL (2.4-3.5); Glucose 196 mg/dL (70-105); Magnesium 1.9 mg/dL (1.6-2.6); Osmolality,Calculated 289 (280-300); Phosphorous 4.4 mg/dL (2.7-4.5); Sodium 136 mEq/L (136-145); Total Protein 7.3 g/dL (6.4-8.9); eGFR For African Americans > 60 (> 60); eGFR For Non-African Americans > 60 (> 60)
[2018-09-04] MEDS: *HR* HYDROcodone/Acet 5/325 mg TABLET PO PRN ×3 (04:15→22:12)
[2018-09-04] MEDS: *HR* Heparin 5,000 UNIT/ML VIAL SQ SCH ×3 (05:37→22:12)
[2018-09-04] MEDS: Fluticasone Propionate Nasal 50 MCG/SPRAY BOTTLE NS SCH ×2 (08:03→20:17)
[2018-09-04] MEDS: Cholecalciferol (D-3) 1,000 UNIT (25MCG) TABLET PO SCH (08:03)
[2018-09-04] MEDS: Vitamin E 200 UNIT (90MG) CAPSULE PO SCH (08:03)
[2018-09-04] MEDS: Doxycycline 100 MG CAPSULE PO SCH ×2 (08:03→20:17)
[2018-09-04] MEDS: Famotidine 20 MG TABLET PO SCH (08:04)
[2018-09-04] MEDS: levoFLOXacin 750 MG TABLET PO SCH (08:04)
[2018-09-04] MEDS: Multivit/Ca/Min/Fe/FA 1 TAB TABLET PO SCH (08:04)
[2018-09-04] MEDS: Furosemide 20 MG TABLET PO SCH (08:04)
[2018-09-04] MEDS: Nicotine 21 MG PATCH.TD24 TD SCH (08:04)
[2018-09-04] MEDS: Loratadine 10 MG TABLET PO SCH (08:04)
[2018-09-04] MEDS: Lactobacillus 1 EACH CAP.SPRINK PO SCH ×2 (08:04→20:17)
[2018-09-04] MEDS: Insulin DETEMIR 100 UNIT/ML X5UNITS SQ SCH (08:04)
[2018-09-04] MEDS: Insulin LISPRO 300 UNITS/3 ML VIAL SQ SCH ×4 (08:05→20:18)
[2018-09-04] MEDS: Nystatin Cream 15 GM TUBE TP SCH ×2 (08:19→20:17)
--- NOTE | 2018-09-04 09:15 | Internal Med Progress Note ---
Hospitalist Progress Note - Encounter Date of Encounter: 09/04/18 Time of Encounter: 09:12 - Subjective Interval History: the patient was seen and examined at bedside. no fever last 48 hours skin rash is resolving still has bullous lesions with redness and swelling of left leg waiting for ironworker helper shop to see patient skin biopsy still pending - Exam Vitals: Temp Pulse Resp BP Pulse Ox 97.7 F 69 19 116/78 95 09/04/18 07:05 09/04/18 07:05 09/04/18 07:05 09/04/18 07:05 09/04/18 07:05 Exam: GEN: NAD, A&O x 3, Pleasant and conversant SKIN: [place] warm acyanotic not jaundice, maculopapular rash in trunck and UE and LE resolving HEART: RRR, no murmurs LUNGS: CTA no wheeze or crackles, overall non labored ABDOMEN; Soft, non tender or distended, BS x 4 normactive EXT: Right LE diffuse edema, tenderness and blistering skin lesion on erythema base Pedal pulses 1+, radial pulses 2+ PSYCH: Mood and affect is appropriate DVT Prophylaxis: Heparin - Summary of Assessment and Plan Summary of Assessment and Plan: (1) Soft tissue infection with cellulitis versus skin disorder Current Visit: Yes Status: Acute Assessment and Plan: still has right LE edema with tenderness causative organism unclear CT of the RLE 08/24/18 Mild subcutaneous fat stranding of the right thigh and moderate subcutaneous fat stranding in the right leg compatible with cellulitis. No drainable fluid collection. Skin blistering along the posteromedial aspect of the right calf. Swab culture of the wound negative. Patient has been on vancomycin/zosyn since 08/24 with little improvement. blistering lesion start drying and crustation still spiked fever but no leukocytosis , BC negative, BP stable also develop maculopapular skin rash mainly over trucnk and extremities, could be red man syndrome d/c vacnomycin and zosyn and start on PO doxyxyclin 100 mg bid and levofloxacin 750 mg daily MRI of the RLE show Skin ulceration posterior to the medial femoral condyle extends 14 mm deep into the subcutaneous fat, without invasion of the sub adjacent medial head of the gastrocnemius. with Severe circumferential edema of the subcutaneous fat of the entire right lower leg, right ankle and visualized right foot, worsened since prior CT. No drainable soft tissue abscess s/p skin biopsy , result still pending order venous doppler negative on wound care ID on board did consult ironworker helper shop serum procal negative CRP 42 (3) fever Current Visit: Yes Status: resolved Assessment and Plan: i suspect drug rash reaction 2/2 vancomycin especially with appearance of skin rash ( red man syndrome) versus autoimmune disease d/c vancomycin start on bendryl 25 mg q6h prn rash is not itchy, getting better on supportive Rx BC negative so far no leukocytosis patient not toxic no wheezing no dysphagia no fever last 48 hours (4) Diabetes Current Visit: Yes Status: Acute Assessment and Plan: glycemic control is important point of care glucose 124 - 180 continue short acting insulin and basal coverage. Glycermic control needed for proper wound healing. A1c 6.4 (5) GERD (gastroesophageal reflux disease) Current Visit: Yes Status: Acute Assessment and Plan: Stable chronic switch PPI to H2 monica due to increased risk for C. difficile colitis (6) DVT prophylaxis Current Visit: Yes Status: Acute Assessment and Plan: Heparin subcutaneously (7) Tobacco abuse Current Visit: Yes Status: Acute Assessment and Plan: encouraged tobacco cessation (8) Morbid obesity Current Visit: Yes Status: Acute Assessment and Plan: Continue to encourage lifestyle modification diet and exercise diarrhea : resolved C diff tested on 08/25 and is negative. - Time Spent with Patient Total time spent is greater than 50% in coordination of care (as documented) at patient's floor/unit and/or counseling patient: Internal Medicine: Result - Labs CBC & Chem 7: 09/04/18 02:28 09/04/18 02:28 Labs: Short CBC 09/04/18 Range/Units 02:28 WBC 6.9 (4.3-11.1) K/mcL Hgb 13.4 (11.5-15.4) g/dL Hct 41.0 (35.3-44.9) % Plt Count 341 (140-400) K/mcL Neutrophils # 3.2 (1.6-8.9) K/mcL BMP 09/04/18 02:28 Sodium 136 Potassium 4.0 Chloride 102 Carbon Dioxide 25 BUN 16 Creatinine 0.81 Glucose 196 H Calcium 9.3 Liver Function 09/04/18 Range/Units 02:28 Total Bilirubin 0.4 (0.3-1.0) mg/dL AST 23 (13-39) Units/L ALT 35 (7-52) Units/L Alkaline Phosphatase 102 (34-104) Units/L Albumin 3.7 (3.5-5.7) g/dL - ABG Interpretation ABG results: PT/INR, D-dimer PT 11.4 Seconds (9.4-12.1) 08/24/18 17:43 Consult Discharge Plan - Plan Additional Instructions: Daily wound Care: Remove dressings. Shower with antibacterial soap. Cover with nonadherent dressing or Adaptic. Wrap with kerlix and then tavo wrap or apply dry dressing and tape to secure (per patient preference). Referrals: Luis Daniel Prasad MD [Non-Partnered Physician] - 09/13/18 1:30 pm (In wound care) Ty Gilbert MD [Non-Partnered Physician] - 09/07/18 8:45 am
[2018-09-04] MEDS: Budesonide/Formoterol 160/4.5 1 PUFF INH IH SCH ×2 (10:40→20:30)
[2018-09-04] MEDS: *HR* OxyCODONE Immed Rel 5 MG TABLET PO PRN (17:50)
[2018-09-04] MEDS: ARIPiprazole 10 MG TABLET PO SCH (17:50)
[2018-09-04] MEDS: Melatonin 3 MG TABLET PO PRN (22:13)
[2018-09-05] MEDS: Famotidine 20 MG TABLET PO SCH ×3 (04:24→20:51)
[2018-09-05] MEDS: *HR* Heparin 5,000 UNIT/ML VIAL SQ SCH ×3 (04:35→20:51)
[2018-09-05 06:17] LABS: Basophils # 0.1 K/mcL (0.0-0.2); Basophils % 1.1 %; Eosinophils # 0.2 K/mcL (0.0-0.6); Hemoglobin 13.6 g/dL (11.5-15.4); Immature Granulocytes % 0.7 % (0-4); Lymphocytes # 2.5 K/mcL (0.6-4.6); Lymphocytes % 29.6 %; Mean Corpuscular HGB Conc 32.4 g/dL (31.6-35.5); Mean Corpuscular Hemoglobin 29.8 pg (28.0-33.3); Mean Corpuscular Volume 92.1 fL (83.0-100.0); Mean Platelet Volume 9.3 fL (9.4-12.4); Monocytes # 0.8 K/mcL (0.0-1.3); Monocytes % 9.4 %; Neutrophils # 4.9 K/mcL (1.6-8.9); Platelet Count 350 K/mcL (140-400); Red Blood Count 4.56 M/mcL (3.82-4.97); Red Cell Distribution Width 13.7 % (11.5-14.5); Segmented Neutrophils % 57.2 %; White Blood Count 8.6 K/mcL (4.3-11.1)
[2018-09-05 06:36] LABS: Alanine Aminotransferase 28 Units/L (7-52); Albumin 3.7 g/dL (3.5-5.7); Alkaline Phosphatase 101 Units/L (34-104); Aspartate Amino Transferase 15 Units/L (13-39); BUN/Creatinine Ratio 21 (6-26); Bilirubin,Total 0.5 mg/dL (0.3-1.0); Blood Urea Nitrogen 16 mg/dL (6-20); Calcium 9.5 mg/dL (8.6-10.3); Carbon Dioxide 23 mEq/L (23-29); Chloride 101 mEq/L (98-107); Globulin 3.6 g/dL (2.4-3.5); Glucose 198 mg/dL (70-105); Magnesium 1.9 mg/dL (1.6-2.6); Osmolality,Calculated 289 (280-300); Phosphorous 4.1 mg/dL (2.7-4.5); Sodium 136 mEq/L (136-145); Total Protein 7.3 g/dL (6.4-8.9); eGFR For African Americans > 60 (> 60); eGFR For Non-African Americans > 60 (> 60)
[2018-09-05] MEDS: Budesonide/Formoterol 160/4.5 1 PUFF INH IH SCH ×2 (07:40→20:08)
[2018-09-05] MEDS: Nicotine 21 MG PATCH.TD24 TD SCH (08:34)
[2018-09-05] MEDS: Fluticasone Propionate Nasal 50 MCG/SPRAY BOTTLE NS SCH ×2 (08:34→21:04)
[2018-09-05] MEDS: Cholecalciferol (D-3) 1,000 UNIT (25MCG) TABLET PO SCH (08:34)
[2018-09-05] MEDS: Doxycycline 100 MG CAPSULE PO SCH ×2 (08:35→20:51)
[2018-09-05] MEDS: Multivit/Ca/Min/Fe/FA 1 TAB TABLET PO SCH (08:35)
[2018-09-05] MEDS: levoFLOXacin 750 MG TABLET PO SCH (08:35)
[2018-09-05] MEDS: Loratadine 10 MG TABLET PO SCH (08:35)
[2018-09-05] MEDS: Vitamin E 200 UNIT (90MG) CAPSULE PO SCH (08:35)
[2018-09-05] MEDS: Lactobacillus 1 EACH CAP.SPRINK PO SCH ×2 (08:35→20:51)
[2018-09-05] MEDS: Furosemide 20 MG TABLET PO SCH (08:35)
[2018-09-05] MEDS: Insulin LISPRO 300 UNITS/3 ML VIAL SQ SCH ×4 (08:36→21:04)
[2018-09-05] MEDS: *HR* HYDROcodone/Acet 5/325 mg TABLET PO PRN ×3 (09:01→22:24)
--- NOTE | 2018-09-05 10:16 | Infectious Disease Progress No ---
ID Progress Note Date of Encounter: 09/05/18 Time of Encounter: 09:45 - Subjective Subjective: Patient seen and examined. No acute events noted overnight. Patient states overall she feels better but continues to have a significant amount of pain in her right leg with ambulation or weight-bearing due to the blisters rupturing. Denies fevers, chills, or rigors. Denies chest pain, shortness of breath, or cough. Denies nausea, vomiting, diarrhea, or abdominal pain. States stools are loose and she is having usually two per day. Denies oral thrush. States her appetite is good. States rash is markedly improved. - Objective CBC & Chem 7: 09/06/18 03:59 09/05/18 05:42 - Exam Vitals: Temp Pulse Resp BP Pulse Ox 98.5 F 73 18 117/7 95 09/05/18 07:24 09/05/18 07:24 09/05/18 07:42 09/05/18 07:24 09/05/18 07:42 Exam: Head: Atraumatic, normal inspection, normocephalic. Eye: EOMI, PERRLA, no scleral icterus noted. ENT: Mucous membranes moist. No odontogenic infection noted. Neck: Normal inspection, no meningismus. Respiratory: Clear to auscultation. No rales, respiratory distress, rhonchi, or wheezes noted. Cardiovascular: Regular rate and rhythm, S1 and S2 audible. No murmurs, rubs, or gallops. GI: Soft, nondistended, normal bowel sounds. Extremities: RLE dressing C/D/I. Neurological: Alert, oriented 3, no focal deficits. Psychiatric: normal affect, normal mood. Skin: Dry, intact, warm. Normal color. Rash resolved. - Assessment and Plan (1) Sepsis Current Visit: Yes Status: Acute Noted at OSH. Likely secondary to RLE infection. Resolved initially, but re-developed fevers. WBC remains normal. Blood cultures drawn 08/24/18 are negative x 2 sets. Repeat blood cultures drawn 09/01/18 are NGTD x 2 sets. Afebrile now. Procalcitonin normal. Rash improved. ESR and CRP elevated. DEONNA pending. Low index of suspicion that new-onset fevers/rash infection-related. Consider non-infectious etiologies of fevers: autoimmune vs. drug-related vs. other. Qualifiers: Sepsis type: sepsis due to unspecified organism Qualified Code(s): A41.9 - Sepsis, unspecified organism SNOMED Code(s): 39944780 (2) Cellulitis Current Visit: Yes Status: Acute Location: RLE. Causative organism: Unclear. CT of the RLE 08/24/18 Mild subcutaneous fat stranding of the right thigh and moderate subcutaneous fat stranding in the right leg compatible with cellulitis. No drainable fluid collection. Skin blistering along the posteromedial aspect of the right calf. Swab culture of the wound negativex 2. Patient had been on vancomycin/zosyn since 08/24 with minimal improvement. --> discontinued 09/02/18. MRI of the RLE non-revealing. Not sure if this is truly cellulitis vs. something else. Status post skin biopsy. Results pending. Dermatology consult pending. Currently on doxycycline and levaquin. Qualifiers: Site of cellulitis: extremity Site of cellulitis of extremity: lower extremity Laterality: right Qualified Code(s): L03.115 - Cellulitis of right lower limb SNOMED Code(s): 201039459 (3) Diarrhea Current Visit: Yes Status: Acute Likely secondary to antibiotics. Improved. States more formed and less frequent. C diff tested on 08/25 and is negative. Supportive care per the primary team. Probiotics daily. Qualifiers: Diarrhea type: unspecified type Qualified Code(s): R19.7 - Diarrhea, unspecified SNOMED Code(s): 78712668 (4) Diabetes Current Visit: Yes Status: Acute Recommend aggressive glucose monitoring and control to promote wound healing and prevent re-infection. Management per the primary team. Qualifiers: Diabetes mellitus type: type 2 Diabetes mellitus marine oil terminal superintendent insulin use: without senior living use Diabetes mellitus complication status: with circulatory complication Diabetes mellitus complication detail: with other circulatory complications SNOMED Code(s): 81243788 (5) GERD (gastroesophageal reflux disease) Current Visit: Yes Status: Acute Qualifiers: Esophagitis presence: without esophagitis Qualified Code(s): K21.9 - Gastro-esophageal reflux disease without esophagitis SNOMED Code(s): 056687390 (6) Tobacco abuse Current Visit: Yes Status: Acute SNOMED Code(s): 861991383 (7) Morbid obesity Current Visit: Yes Status: Acute SNOMED Code(s): 878362257 (8) Rash Current Visit: Yes Status: Acute Etiology: Unclear, drug rash vs. other. Resolved with discontinuance of IV Vanc and Zosyn. SNOMED Code(s): 957226050 - Recommendations Recommendations: Await DEONNA results. Await skin biopsy results. Await recommendations from dermatology. Consider rheumatology to evaluate. Continue doxycycline 100mg PO BID. Continue levaquin 750mg PO daily. Duration of treatment depends on the clinical picture, but likely a total of 14 days. Treat through 09/07/18. Monitor renal function and for drug toxicity and dose-adjust antibiotics. No further recommendations from the ID team. We will sign off. Please re-consult if needed. Consult Discharge Plan - Plan Instructions: Cellulitis (DC), Diabetes Mellitus Type 2 in Adults (DC) Additional Instructions: Daily wound Care: Remove dressings. Shower with antibacterial soap. Cover with nonadherent dressing or Adaptic. Wrap with kerlix and then tavo wrap or apply dry dressing and tape to secure (per patient preference). Referrals: Luis Daniel Prasad MD [Non-Partnered Physician] - 09/13/18 1:30 pm (In wound care) Stephani Sevilla MD [Partnered Physician] - 09/08/18 2:40 pm Ty Gilbert MD [Non-Partnered Physician] - 09/07/18 8:45 am Prescriptions: Lancets [Acti-[place]] 1 each MC QID #100 each Insulin LISPRO [Admelog Solostar] 3 unit SQ TIDAC #1 insuln.pen Alcohol Antiseptic Pads [Caretouch Alcohol Prep Pad] 1 each TP QID #100 med..pad Insulin DETEMIR [Levemir] 20 unit SQ QAM 30 Days #1 [id number] Nystatin Cream [Mycostatin Cream] 1 appl TP BID #30 tube Nicotine Patch [Nicoderm] 21 mg TD DAILY #30 patch.td24 HYDROcodone/Acet 5/325 mg [[place] 5-325 mg] 1 tab PO Q6HR PRN 7 Days #28 tablet PRN Reason: Moderate Pain Pen Needle, Diabetic [Pen [place]] 1 each MC QID #100 dis.needle Famotidine [Pepcid] 20 mg PO BID #60 tablet predniSONE [Prednisone] 10 mg PO AD 28 Days #46 tab.ds.pk Blood Sugar Diagnostic [Test Strips] 1 each QID #100 strip - Attending Attestation I have personally performed a face to face evaluation on this patient. I have reviewed and agree with the care plan. History and Exam by me shows: Patient seen and examined. Clinically she is doing better but states she still has severe pain. Fever has subsided. Assessment and plan: 1.Cellulitis of the right lower extremity etiology not clear with blisters pathology pending 2.Diarrhea improved Recommendations Await DEONNA results. Await skin biopsy results. Await recommendations from dermatology. Consider rheumatology to evaluate. Continue doxycycline 100mg PO BID. Continue levaquin 750mg PO daily. Duration of treatment depends on the clinical picture, but likely a total of 14 days. Treat through 09/07/18. Monitor renal function and for drug toxicity and dose-adjust antibiotics. No further recommendations from the ID team. We will sign off. Please re-consult if needed.
[2018-09-05 10:37] LABS: ANA IgG by ELISA NONE DETECTED (None Detected)
--- NOTE | 2018-09-05 11:08 | Internal Med Progress Note ---
Hospitalist Progress Note - Encounter Date of Encounter: 09/05/18 Time of Encounter: 11:04 - Subjective Interval History: The patient was seen and examined at the bedside. Patient feeling well still has left leg swelling with bullous erythematous lesion I did call dermatology office and consult them - Exam Vitals: Temp Pulse Resp BP Pulse Ox 97.7 F 78 16 126/80 97 09/05/18 10:36 09/05/18 10:36 09/05/18 10:36 09/05/18 10:36 09/05/18 10:36 Exam: GEN: NAD, A&O x 3, Pleasant and conversant SKIN: [place] warm acyanotic not jaundice, maculopapular rash in trunck and UE and LE resolving HEART: RRR, no murmurs LUNGS: CTA no wheeze or crackles, overall non labored ABDOMEN; Soft, non tender or distended, BS x 4 normactive EXT: Right LE diffuse edema, tenderness and blistering skin lesion on erythema base Pedal pulses 1+, radial pulses 2+ PSYCH: Mood and affect is appropriate DVT Prophylaxis: Heparin - Summary of Assessment and Plan Summary of Assessment and Plan: (1) Soft tissue infection with cellulitis versus skin disorder Current Visit: Yes Status: Acute Assessment and Plan: still has right LE edema with tenderness causative organism unclear CT of the RLE 08/24/18 Mild subcutaneous fat stranding of the right thigh and moderate subcutaneous fat stranding in the right leg compatible with cellulitis. No drainable fluid collection. Skin blistering along the posteromedial aspect of the right calf. Swab culture of the wound negative. Patient has been on vancomycin/zosyn since 08/24 with little improvement. blistering lesion start drying and crustation still spiked fever but no leukocytosis , BC negative, BP stable also develop maculopapular skin rash mainly over trucnk and extremities, could be red man syndrome d/c vacnomycin and zosyn and start on PO doxyxyclin 100 mg bid and levofloxacin 750 mg daily MRI of the RLE show Skin ulceration posterior to the medial femoral condyle extends 14 mm deep into the subcutaneous fat, without invasion of the sub adjacent medial head of the gastrocnemius. with Severe circumferential edema of the subcutaneous fat of the entire right lower leg, right ankle and visualized right foot, worsened since prior CT. No drainable soft tissue abscess s/p skin biopsy , result still pending order venous doppler negative on wound care ID on board did consult molecular technologist, waiting for further input refrain from starting on iv steroid until seen by molecular technologist serum procal negative CRP 42 (3) fever Current Visit: Yes Status: resolved Assessment and Plan: i suspect drug rash reaction 2/2 vancomycin especially with appearance of skin rash ( red man syndrome) versus autoimmune disease d/c vancomycin start on bendryl 25 mg q6h prn rash is not itchy, getting better on supportive Rx BC negative so far no leukocytosis patient not toxic no wheezing no dysphagia no fever last 48 hours (4) Diabetes Current Visit: Yes Status: Acute Assessment and Plan: glycemic control is important point of care glucose 124 - 180 continue short acting insulin and basal coverage. Glycermic control needed for proper wound healing. A1c 6.4 (5) GERD (gastroesophageal reflux disease) Current Visit: Yes Status: Acute Assessment and Plan: Stable chronic switch PPI to H2 monica due to increased risk for C. difficile colitis (6) DVT prophylaxis Current Visit: Yes Status: Acute Assessment and Plan: Heparin subcutaneously (7) Tobacco abuse Current Visit: Yes Status: Acute Assessment and Plan: encouraged tobacco cessation (8) Morbid obesity Current Visit: Yes Status: Acute Assessment and Plan: Continue to encourage lifestyle modification diet and exercise diarrhea : resolved C diff tested on 08/25 and is negative. - Time Spent with Patient Total time spent is greater than 50% in coordination of care (as documented) at patient's floor/unit and/or counseling patient: Internal Medicine: Result - Labs CBC & Chem 7: 09/05/18 05:42 09/05/18 05:42 Labs: Short CBC 09/05/18 Range/Units 05:42 WBC 8.6 (4.3-11.1) K/mcL Hgb 13.6 (11.5-15.4) g/dL Hct 42.0 (35.3-44.9) % Plt Count 350 (140-400) K/mcL Neutrophils # 4.9 (1.6-8.9) K/mcL BMP 09/05/18 05:42 Sodium 136 Potassium 4.0 Chloride 101 Carbon Dioxide 23 BUN 16 Creatinine 0.76 Glucose 198 H Calcium 9.5 Liver Function 09/05/18 Range/Units 05:42 Total Bilirubin 0.5 (0.3-1.0) mg/dL AST 15 (13-39) Units/L ALT 28 (7-52) Units/L Alkaline Phosphatase 101 (34-104) Units/L Albumin 3.7 (3.5-5.7) g/dL - ABG Interpretation ABG results: PT/INR, D-dimer PT 11.4 Seconds (9.4-12.1) 08/24/18 17:43 Consult Discharge Plan - Plan Additional Instructions: Daily wound Care: Remove dressings. Shower with antibacterial soap. Cover with nonadherent dressing or Adaptic. Wrap with kerlix and then tavo wrap or apply dry dressing and tape to secure (per patient preference). Referrals: Luis Daniel Prasad MD [Non-Partnered Physician] - 09/13/18 1:30 pm (In wound care) Ty Gilbert MD [Non-Partnered Physician] - 09/07/18 8:45 am
[2018-09-05] MEDS: Insulin DETEMIR 100 UNIT/ML X5UNITS SQ SCH (11:44)
--- NOTE | 2018-09-05 12:03 | Dermatology Consult Note ---
Date of Encounter: 09/05/18 Time of Encounter: 10:40 History of Present Illness Reason for Consult: Rash History of Present Illness: [place] and is a 43-year-old female to the hospital for a rash on her right foot 2 weeks ago. She reports pain and swelling to the site. She has been treated with IV antibiotics including vancomycin and clindamycin at a different facility and then transfered here with some improvement in the original rash on her right foot. However, about 4 days ago, she noticed that the right lower leg started getting red, swollen and she saw blisters. She was switched off of IV medications and started on doxycycline and levofloxacin and the blisters have gone down but her leg is severely tender to touch and red and purple. She denies known tick or bug bite. Review of Systems General/Constitutional: Patient denies fevers, chills, nor recent unintended weight loss, night sweats, no change in appetite or malaise. Hematologic: Patient denies new or enlarging lumps or bumps. Skin: Patient denies new or changing moles, or rash other than what is mentioned above. Past Med Surg Social Fam HX - Past Medical History Medical history: arthritis, asthma, diabetes, GERD, hyperlipidemia, kidney stones Additional medical history: Gastric ulcers, Exposure to HIV, IBS with diarrhea, Kidney stones, Anemia Psychiatric history: anxiety - Past Surgical History Surgical History: cholecystectomy, hysterectomy Additional surgical history: thyroid nodule removal, endometrial ablation, EGD/Colonoscopy 02/2018 - Social History Smoking Status: Current every day smoker Packs per day: 1 Smokeless Tobacco Status: No Alcohol use: none Medications and Allergies Albuterol Sulfate [Ventolin Hfa] 2 puff IH Q6H PRN 08/24/18 [History] Aripiprazole [Abilify] 20 mg PO QPM 08/24/18 [History] Atorvastatin [Lipitor] 10 mg PO DAILY 08/24/18 [History] Calcium Carbonate/Vitamin D3 [Calcium 600-Vit D3 200 Tablet] 1 tab PO DAILY 08/24/18 [History] Ergocalciferol (VITAMIN D2) [Vitamin D2] 50,000 unit PO TU 08/24/18 [History] Estradiol [Estrace] 1 mg PO DAILY 08/24/18 [History] Fluticasone Propionate Nasal [Flonase] 1 spray NS BID 08/24/18 [History] Furosemide [Lasix] 20 mg PO QAM 08/24/18 [History] Glimepiride [Amaryl] 4 mg PO DAILY 08/24/18 [History] Hyoscyamine Sulfate [Hyoscyamine Sulfate ER] 0.375 mg PO Q12H 08/24/18 [History] Lactobacillus [Culturelle] 1 cap PO BID 08/24/18 [History] Lisinopril [Zestril] 5 mg PO DAILY PRN 08/24/18 [History] Loperamide [Imodium] 2 mg PO BID 08/24/18 [History] Loratadine [Claritin] 10 mg PO DAILY 08/24/18 [History] Melatonin 5 - 10 mg PO HS PRN 08/24/18 [History] Metformin HCl [Glucophage Xr] 2,250 mg PO QPM 08/24/18 [History] Mometasone/Formoterol [Dulera 200 Mcg/5 Mcg Inhaler] 2 puff IH BID 08/24/18 [History] Multivitamin with Iron [One Daily with Iron] 1 tab PO DAILY 08/24/18 [History] Omeprazole [PriLOSEC] 40 mg PO QPM 08/24/18 [History] Ondansetron HCl 8 mg PO BID PRN 08/24/18 [History] Oxazepam 10 mg PO BID PRN 08/24/18 [History] Vitamin E 1,000 unit PO DAILY 08/24/18 [History] Allergy/AdvReac Type Severity Reaction Status Date / Time naproxen AdvReac Agitated Verified 02/16/18 07:31 Examination Vital Signs: Temp Pulse Resp BP Pulse Ox 97.7 F 78 16 126/80 97 09/05/18 10:36 09/05/18 10:36 09/05/18 10:36 09/05/18 10:36 09/05/18 10:36 General Examination: The patient appears alert, oriented X3, in no acute distress, healthy-appearing, normal mood. A detailed skin examination of sites including: scalp, head, neck, face, conjunctive, lids, lips, bilateral lower extremities including feet/digits/toenails, , was completed and found to be normal except: 5-10cm islands of red/pupuric plaques with a peeling sheen on right posterior and medial lower leg - focal serous drainage - Assessment and Plan (1) Acute blistering eruption of skin Current Visit: Yes Status: Acute Pathology specimen was reviewed today and appears PAUCICELLULAR subeidermal edema creating bullae -- because there are few inflammatory cells, cellulitis is considered less likely ( however these histologic changes may have been altered by the medications the patient has already received. -- Clinically, she seems to be improved ( no bullae today, lab counts seem like they are normalizing and her vitals are stable) -- I recommend finishing course of oral antibiotics - doxycycline/ levofloxacin in case this was all damage from arthropod bite reaction of some sort ; however, I do think she may benefit from lower dose steroids 20-30mg prednisone daily for 10-14 days top help her symptoms -- if rash is still brewing when she is off antibiotics, suggest re- biopsy and consider direct immunofluorescence at that time - Clinical differential includes arthropod bite reaction, vs doubt patel moutain spotted fever ( vasulitic in nature) - vs immunobullous disease from vancomycin - linear IGA - -- plan follow up with dermatology after discharge Procedure: Dermatology Date of procedure: 09/05/18 Consult Discharge Plan - Plan Additional Instructions: Daily wound Care: Remove dressings. Shower with antibacterial soap. Cover with nonadherent dressing or Adaptic. Wrap with kerlix and then tavo wrap or apply dry dressing and tape to secure (per patient preference). Referrals: Luis Daniel Prasad MD [Non-Partnered Physician] - 09/13/18 1:30 pm (In wound care) Ty Gilbert MD [Non-Partnered Physician] - 09/07/18 8:45 am
[2018-09-05] MEDS: Nystatin Cream 15 GM TUBE TP SCH ×2 (13:36→21:04)
[2018-09-05] MEDS: predniSONE 20 MG TABLET PO SCH (16:32)
[2018-09-05] MEDS: ARIPiprazole 10 MG TABLET PO SCH (17:41)
[2018-09-05] MEDS: Melatonin 3 MG TABLET PO PRN (22:24)
[2018-09-06 05:00] LABS: Basophils # 0.1 K/mcL (0.0-0.2); Basophils % 0.9 %; Eosinophils # 0.1 K/mcL (0.0-0.6); Eosinophils % 0.8 %; Hemoglobin 13.8 g/dL (11.5-15.4); Immature Granulocytes % 0.9 % (0-4); Lymphocytes # 1.6 K/mcL (0.6-4.6); Lymphocytes % 21.6 %; Mean Corpuscular HGB Conc 32.9 g/dL (31.6-35.5); Mean Corpuscular Hemoglobin 29.6 pg (28.0-33.3); Mean Corpuscular Volume 89.9 fL (83.0-100.0); Mean Platelet Volume 9.5 fL (9.4-12.4); Monocytes # 0.5 K/mcL (0.0-1.3); Monocytes % 6.3 %; Neutrophils # 5.2 K/mcL (1.6-8.9); Platelet Count 384 K/mcL (140-400); Red Blood Count 4.67 M/mcL (3.82-4.97); Red Cell Distribution Width 13.3 % (11.5-14.5); Segmented Neutrophils % 69.5 %; White Blood Count 7.4 K/mcL (4.3-11.1)
[2018-09-06] MEDS: *HR* Heparin 5,000 UNIT/ML VIAL SQ SCH (05:09)
[2018-09-06] MEDS: *HR* HYDROcodone/Acet 5/325 mg TABLET PO PRN (05:10)
[2018-09-06] MEDS: Budesonide/Formoterol 160/4.5 1 PUFF INH IH SCH (07:57)
[2018-09-06] MEDS: Nicotine 21 MG PATCH.TD24 TD SCH (08:01)
[2018-09-06] MEDS: Furosemide 20 MG TABLET PO SCH (08:01)
[2018-09-06] MEDS: Famotidine 20 MG TABLET PO SCH (08:01)
[2018-09-06] MEDS: Cholecalciferol (D-3) 1,000 UNIT (25MCG) TABLET PO SCH (08:01)
[2018-09-06] MEDS: Multivit/Ca/Min/Fe/FA 1 TAB TABLET PO SCH (08:01)
[2018-09-06] MEDS: predniSONE 20 MG TABLET PO SCH (08:01)
[2018-09-06] MEDS: levoFLOXacin 750 MG TABLET PO SCH (08:01)
[2018-09-06] MEDS: Lactobacillus 1 EACH CAP.SPRINK PO SCH (08:01)
[2018-09-06] MEDS: Insulin LISPRO 300 UNITS/3 ML VIAL SQ SCH ×2 (08:02→11:32)
[2018-09-06] MEDS: Doxycycline 100 MG CAPSULE PO SCH (08:02)
[2018-09-06] MEDS: Fluticasone Propionate Nasal 50 MCG/SPRAY BOTTLE NS SCH (08:02)
[2018-09-06] MEDS: Loratadine 10 MG TABLET PO SCH (08:02)
[2018-09-06] MEDS: Vitamin E 200 UNIT (90MG) CAPSULE PO SCH (08:02)
--- NOTE | 2018-09-06 10:54 | Discharge Summary ---
- NOTES TO OUTPATIENT PROVIDER Notes to Outpatient Provider: Hospital discharge for cellulitis, right lower extremity wound, patient would like to discuss short term disability. Need outpatient dermatology follow-up Date of Encounter: 09/06/18 Time of Encounter: 10:48 - Discharge Diagnosis (1) Soft tissue infection Priority: Primary Status: Acute Assessment and Plan: Patient initially presented with cellulitis and was treated with IV antibiotics which resolved the right lower extremity erythema however she has significant soft tissue infection per MRI and CT of the right lower extremity. Of note she was on vancomycin and Zosyn for 6 days, doxycycline and levofloxacin for 5 days. Had negative wound culture 2, blood culture x 2 also negative. Anaerobic culture was negative. There is concern possible bullous pemphigoid although her presentation does not quite fit the picture. She was evaluated by the surgical team who performed a wound biopsy, -per reportMassive subepidermal edema with scant inflammatory infiltrate within the dermis. She was seen by the infectious disease physician. She was seen by gas welder apprentice, when all initial work up and treatment were un-yielding. The patient on prednisone and will required taper dose. Patient is requesting disability, discussed with patient that this need to be brought up with her primary care physician- Dr Ty Gilbert at [facility]. Only interim we will provide patient with Hospital excuse for the time of her hospitalization and also for another week pending evaluation with PCP within a week. She will also need to follow up with dermatology as an outpatient (2) Cellulitis Priority: Primary Status: Acute Assessment and Plan: Her initial presentation of LE erythema receeded with Zosyn and vancomycin, however has skin and soft tissue edema is worse than initial presentation, hence the aforementioned workup and treatment. Of note she was on vancomycin and Zosyn for 6 days, doxycycline and levofloxacin for 5 days Qualifiers: Site of cellulitis: extremity Site of cellulitis of extremity: lower extremity Laterality: right Qualified Code(s): L03.115 - Cellulitis of right lower limb (3) Acute blistering eruption of skin Priority: Primary Status: Acute Assessment and Plan: She initially presented with erythema which was suggestive for cellulitis of the right lower extremity she was on empiric antimicrobial therapy. Wound cultures was negative there was consented for possible bullous pemphigoid she was seen by gas welder apprentice who started her on prednisone she will be sent home on prednisone follow-up with the gas welder apprentice outpatient. Of note she was on vancomycin and Zosyn for 6 days, doxycycline and levofloxacin for 5 days (4) Sepsis Priority: Secondary Status: Acute Assessment and Plan: Resolved blood culture negative was treated with antimicrobial therapy Qualifiers: Sepsis type: sepsis due to unspecified organism Qualified Code(s): A41.9 - Sepsis, unspecified organism (5) Diabetes Priority: Secondary Status: Acute Assessment and Plan: Discussed with patient importance of glycemic control for proper wound healing. Since she will be discharged home on prednisone will initiate patient on insulin therapy-short acting and basal coverage. Humulin A1c was 6.4 on August 31. However point of care glucose monitoring has ranged from 100-261 during this hospital stay. Patient is to perform self monitoring for blood glucose 3 times a day and at bedtime. She request more testing supplies which will be ordered for the patient Qualifiers: Diabetes mellitus type: type 2 Diabetes mellitus mcfp insulin use: without mcfp use Diabetes mellitus complication status: with circulatory complication Diabetes mellitus complication detail: with other circulatory complications Qualified Code(s): E11.59 - Type 2 diabetes mellitus with other circulatory complications (6) GERD (gastroesophageal reflux disease) Priority: Secondary Status: Acute Assessment and Plan: Stable chronic switch PPI to H2 monica due to increased risk for C. difficile colitis Qualifiers: Esophagitis presence: without esophagitis Qualified Code(s): K21.9 - Gastro-esophageal reflux disease without esophagitis (7) DVT prophylaxis Priority: Secondary Status: Acute Assessment and Plan: She has been discharged today. Patient was strongly advised to remain ambulatory she declined an ECF placement for rehabilitation, she opted [facility] she is scheduled for physical therapy (8) Tobacco abuse Priority: Secondary Status: Acute Assessment and Plan: encouraged tobacco cessation would order nicotine patches (9) Morbid obesity Priority: Secondary Status: Acute Assessment and Plan: Continue to encourage lifestyle modification diet and exercise (10) Diarrhea Priority: Secondary Status: Acute Assessment and Plan: Resolved, her nares for C. difficile she is encouraged to continue to eat yogurt. Patient was on probiotic during this hospital stay Qualifiers: Diarrhea type: unspecified type Qualified Code(s): R19.7 - Diarrhea, unspecified Hospital course: Ms. Mcdowell is a 43 year old female was initially hospitalized for cellulitis of the right lower extremity she was started on empiric antimicrobial therapy with vancomycin Zosyn which resolved initial erythema however she was noted to have a right lower extremity tissue edema and wound infection. Wound culture twice was negative although in the setting of antimicrobial therapy. She was seen by the surgical team who performed wound/skin biopsy. She was seen by the infectious diseases specialist. When are workup was unyielding she was seen by the gas welder apprentice and they started prednisone. Patient will be discharged home on prednisone taper, insulin therapy given that she is going to be on low high- dose steroids and she was instructed to hold oral diabetic medication. She was strongly advised to make sure she follows up with her primary care physician within the next 5 days and to follow-up with a gas welder apprentice within 2-4 weeks. Patient at discharge was requesting information on disability she was strongly advised to bring this up with her primary care physician. On the interim we will provide the documentation covering her during this hospital stay and also for 1 week pending visit with a primary care physician. She was strongly advised to remain ambulatory avoid being sedentary since she is high risk for DVT. She is to complete outpatient physical therapy to decline ECF placement for rehabilitation. She will be discharged home on diabetic supplies also Discharge discussed with: family, nurse, social work, case management, implementation consultant - Time Spent with Patient Total time spent providing and/or coordinating discharge services: 45 mins Specific discharge activities: Please make sure you are ambulatory, continue with outpatient physical therapy. Adherent to the treatment plan as discussed take all medications as prescribed. Please hold all your oral diabetic me dication while on insulin therapy. Make sure you follow up with Dr Ty Gilbert within the next 5 days and make sure you follow up with gas welder apprentice within 2-4 weeks after you completed prednisone taper - Discharge Medications Prescriptions: New Lancets [Acti-[place]] 1 each MC QID #100 each Insulin LISPRO [Admelog Solostar] 3 unit SQ TIDAC #1 insuln.pen Alcohol Antiseptic Pads [Caretouch Alcohol Prep Pad] 1 each TP QID #100 med..pad Insulin DETEMIR [Levemir] 20 unit SQ QAM 30 Days #1 [id number] Nystatin Cream [Mycostatin Cream] 1 appl TP BID #30 tube Nicotine Patch [Nicoderm] 21 mg TD DAILY #30 patch.td24 HYDROcodone/Acet 5/325 mg [Delta 5-325 mg] 1 tab PO Q6HR PRN 7 Days #28 tablet PRN Reason: Moderate Pain Pen Needle, Diabetic [Pen Hitterdal] 1 each QID #100 dis.needle Famotidine [Pepcid] 20 mg PO BID #60 tablet predniSONE [PredniSONE] 10 mg PO DAILY 28 Days #46 tablet Blood Sugar Diagnostic [Test Strips] 1 each QID #100 strip Continued Lactobacillus [Culturelle] 1 cap PO BID Fluticasone Propionate Nasal [Flonase] 1 spray NS BID Estradiol [Estrace] 1 mg PO DAILY Calcium Carbonate/Vitamin D3 [Calcium 600-Vit D3 200 Tablet] 1 tab PO DAILY Hyoscyamine Sulfate [Hyoscyamine Sulfate ER] 0.375 mg PO Q12H Melatonin 5 - 10 mg PO HS PRN PRN Reason: Sleep Aripiprazole [Abilify] 20 mg PO QPM Loratadine [Claritin] 10 mg PO DAILY Ergocalciferol (VITAMIN D2) [Vitamin D2] 50,000 unit PO TU Oxazepam 10 mg PO BID PRN PRN Reason: Anxiety Multivitamin with Iron [One Daily with Iron] 1 tab PO DAILY Mometasone/Formoterol [Dulera 200 Mcg/5 Mcg Inhaler] 2 puff IH BID Lisinopril [Zestril] 5 mg PO DAILY PRN PRN Reason: high bp Furosemide [Lasix] 20 mg PO QAM Atorvastatin [Lipitor] 10 mg PO DAILY Albuterol Sulfate [Ventolin Hfa] 2 puff IH Q6H PRN PRN Reason: sob Discontinued Ondansetron HCl 8 mg PO BID PRN PRN Reason: Nausea Omeprazole [PriLOSEC] 40 mg PO QPM Loperamide [Imodium] 2 mg PO BID Vitamin E 1,000 unit PO DAILY Metformin HCl [Glucophage Xr] 2,250 mg PO QPM Glimepiride [Amaryl] 4 mg PO DAILY Home Medications: Albuterol Sulfate [Ventolin Hfa] 2 puff IH Q6H PRN 08/24/18 [History] Aripiprazole [Abilify] 20 mg PO QPM 08/24/18 [History] Atorvastatin [Lipitor] 10 mg PO DAILY 08/24/18 [History] Calcium Carbonate/Vitamin D3 [Calcium 600-Vit D3 200 Tablet] 1 tab PO DAILY 08/24/18 [History] Ergocalciferol (VITAMIN D2) [Vitamin D2] 50,000 unit PO TU 08/24/18 [History] Estradiol [Estrace] 1 mg PO DAILY 08/24/18 [History] Fluticasone Propionate Nasal [Flonase] 1 spray NS BID 08/24/18 [History] Furosemide [Lasix] 20 mg PO QAM 08/24/18 [History] Hyoscyamine Sulfate [Hyoscyamine Sulfate ER] 0.375 mg PO Q12H 08/24/18 [History] Lactobacillus [Culturelle] 1 cap PO BID 08/24/18 [History] Lisinopril [Zestril] 5 mg PO DAILY PRN 08/24/18 [History] Loratadine [Claritin] 10 mg PO DAILY 08/24/18 [History] Melatonin 5 - 10 mg PO HS PRN 08/24/18 [History] Mometasone/Formoterol [Dulera 200 Mcg/5 Mcg Inhaler] 2 puff IH BID 08/24/18 [History] Multivitamin with Iron [One Daily with Iron] 1 tab PO DAILY 08/24/18 [History] Oxazepam 10 mg PO BID PRN 08/24/18 [History] Alcohol Antiseptic Pads [Caretouch Alcohol Prep Pad] 1 each TP QID #100 med..pad 09/06/18 [Rx] Blood Sugar Diagnostic [Test Strips] 1 each MC QID #100 strip 09/06/18 [Rx] Famotidine [Pepcid] 20 mg PO BID #60 tablet 09/06/18 [Rx] HYDROcodone/Acet 5/325 mg [Delta 5-325 mg] 1 tab PO Q6HR PRN 7 Days #28 tablet 09/06/18 [Rx] Insulin DETEMIR [Levemir] 20 unit SQ QAM 30 Days #1 [id number] 09/06/18 [Rx] Insulin LISPRO [Admelog Solostar] 3 unit SQ TIDAC #1 insuln.pen 09/06/18 [Rx] Lancets [Acti-[place]] 1 each MC QID #100 each 09/06/18 [Rx] Nicotine Patch [Nicoderm] 21 mg TD DAILY #30 patch.td24 09/06/18 [Rx] Nystatin Cream [Mycostatin Cream] 1 appl TP BID #30 tube 09/06/18 [Rx] Pen Needle, Diabetic [Pen Hitterdal] 1 each MC QID #100 dis.needle 09/06/18 [Rx] predniSONE [Prednisone] 10 mg PO AD 28 Days #46 tab.ds.pk 09/06/18 [Rx] Allergies/Adverse Reactions: Allergy/AdvReac Type Severity Reaction Status Date / Time naproxen AdvReac Agitated Verified 02/16/18 07:31 Date of admission: 08/24/18 18:29 Primary care physician: PCP NONE Consults: 08/24/18 17:01 Consult to Occupational Therapy [CONS] Routine Comment: Evaluate, develop and implement POC Reason for Consult: therapy/placement needs Does patient have active BEDREST order?: No Is patient medically & hemodynamically stable?: Yes Consult to Physical Therapy [CONS] Routine Comment: Evaluate, develop and implement POC Reason for Consult: PT eval Does patient have active BEDREST order?: No Is patient medically & hemodynamically stable?: Yes 08/24/18 17:14 Consult to Nutrition [CONS] Routine Comment: Lost 57 lbs, gained back 11- unknown why Consulting Provider: NUTRITION Reason for Dietary Consult: MST Score 08/29/18 10:09 Consult to Infectious Diseases [CONS] Routine Consulting Provider: Infectious Disease Wendy Reason for Consult: cellulities with bullae with concern for bullous pemphigoid Time Notified: 10:11 Call Completed: Yes 09/02/18 11:25 Consult to Dermatology [CONS] Routine Consulting Provider: Dermatology [place] Reason for Consult: possible vasculaitis Call Completed: No Discharging clinician: Ivy De La Cruz Anticipated date of discharge: 09/06/18 - Constitutional Vitals: Temp Pulse Resp BP Pulse Ox 97.8 F 69 15 110/76 96 09/06/18 07:22 09/06/18 07:22 09/06/18 08:00 09/06/18 07:22 09/06/18 08:00 Exam: GEN: obese female, NAD, A&O x 3, Pleasant and conversant SKIN: [place] warm acyanotic not jaundice HEART: RRR, no murmurs LUNGS: CTA no wheeze or crackles, overall non labored ABDOMEN; Soft, non tender or distended, BS x 4 normactive EXT: Lower extremities asymmetry noted with the right greater than left, dressing surrounding right lower extremity intact with no serosanguineous stained. no Left LE edema, Pedal pulses 1+, radial pulses 2+ PSYCH: Mood and affect is appropriate - Patient Status Disposition: Home, Self-Care Condition: Good Functional capacity at discharge: independent ambulation Overall status at discharge: patient is progressing back to baseline - Discharge Instructions Instructions: Diabetes Mellitus Type 2 in Adults (DC) Follow Up With: Luis Daniel Prasad MD [Non-Partnered Physician] - 09/13/18 1:30 pm (In wound care) Ty Gilbert MD [Non-Partnered Physician] - 09/07/18 8:45 am Additional Instructions: Daily wound Care: Remove dressings. Shower with antibacterial soap. Cover with nonadherent dressing or Adaptic. Wrap with kerlix and then tavo wrap or apply dry dressing and tape to secure (per patient preference). - Diet and Activity Activity: as per physical therapy Diet: diabetic diet, low fat, low cholesterol, low salt diet
[2018-09-06] MEDS: Insulin DETEMIR 100 UNIT/ML X5UNITS SQ SCH (11:02)
[2018-09-06] MEDS: Nystatin Cream 15 GM TUBE TP SCH (11:06)
[2018-09-06 11:35] VITALS: BP 135/89
== END 2018-09-06 13:43 | disposition home or self-care (01) | DRG 720 ==
LOC: 3ANU → SUATTDRO 18:29
PROVIDERS: ADMIT Student in an Organized Health Care Education/Training Program; ATTEND Internal Medicine